=== PATIENT | female | born 1960 | race Caucasian/White ===

== ENCOUNTER 2018-12-15 13:40 | Emergency (ER) | payer SELFPAY ==
--- NOTE | 2018-12-15 13:58 | ER Document Report ---
ED Medical Screen (RME) - General Chief Complaint: Chest Pain > 30 Stated Complaint: CHEST PAIN/DIFFICULTY BREATHING Time Seen by Provider: 12/15/18 13:54 Mode of Arrival: Wheelchair Information source: Patient Notes: 58-year-old female presents to ED for complaint of abdominal pain with diarrhea since Wednesday and then with chest pain at lunchtime with shortness of breath and still has the diarrhea. Patient is alert and oriented respirations regular and unlabored. She is doubled over at the abdomen. She states all of the pain is right behind her heart does not go to the shoulder arm neck or jaw. She states she is very nauseated and has only vomited one time just before bringing her into the hospital. I have greeted and performed a rapid initial assessment of this patient. A comprehensive ED assessment and evaluation of the patient, analysis of test results and completion of medical decision making process will be conducted by an additional ED providers. - Related Data Allergies/Adverse Reactions: No Known Allergies Allergy (Verified 12/15/18 13:51) Physical Exam - Vital signs Vitals: Temp Pulse Resp BP Pulse Ox 97.4 F 112 H 36 H 138/92 H 98 12/15/18 13:51 12/15/18 13:51 12/15/18 13:51 12/15/18 13:51 12/15/18 13:51 Course - Vital Signs Vital signs: Temp Pulse Resp BP Pulse Ox 97.4 F 112 H 36 H 138/92 H 98 12/15/18 13:51 12/15/18 13:51 12/15/18 13:51 12/15/18 13:51 12/15/18 13:51
[2018-12-15] MEDS ORDERED: METOCLOPRAMIDE HCL ORAL SOLN 10 MG/10 ML UDCUP PO ONE (13:59)
[2018-12-15] MEDS ORDERED: LIDOCAINE 2% JELLY 30 ML TUBE TOP ONE (13:59)
[2018-12-15] MEDS ORDERED: ASPIRIN 81 MG TABLET, CHEWABLE PO ONE (13:59)
[2018-12-15] MEDS ORDERED: MAG HYDROX/AL HYDROX/SIMETH SUSP 30 ML UDCUP PO ONE (13:59)
[2018-12-15] MEDS ORDERED: ALBUTEROL SULFATE 0.083% NEB 2.5 MG/3 ML AMPUL NEB ONE (14:03)
[2018-12-15] MEDS ORDERED: DEXAMETHASONE SOD PHOS INJ 10 MG/1 ML VIAL IM ONE (14:04)
[2018-12-15] MEDS ORDERED: LIDOCAINE 2% VISCOUS SOLN 20 ML UDCUP PO ONE (14:11)
[2018-12-15 14:23] LABS: ABSOLUTE BASOPHILS # (AUTO) 0.1 10^3/uL (0.0-0.2); ABSOLUTE EOSINOPHILS # (AUTO) 0.8 10^3/uL (0.0-0.6); ABSOLUTE LYMPHOCYTES (AUTO) 2.4 10^3/uL (0.5-4.7); ABSOLUTE MONOCYTES (AUTO) 0.5 10^3/uL (0.1-1.4); ABSOLUTE NEUT (AUTO) 5.5 10^3/uL (1.7-8.2); BASOPHILS % (AUTO) 0.8 % (0-2); EOSINOPHILS % (AUTO) 8.5 % (0-6); HEMATOCRIT 38.2 % (36.0-47.0); HEMOGLOBIN 13.2 g/dL (12.0-15.5); LYMPHOCYTES % (AUTO) 25.8 % (13-45); MEAN CORPUSCULAR HEMOGLOBIN 31.1 pg (27.0-33.4); MEAN CORPUSCULAR HGB CONC 34.5 g/dL (32.0-36.0); MEAN CORPUSCULAR VOLUME 90 fl (80-97); MONOCYTES % (AUTO) 5.8 % (3-13); PLATELET COUNT 311 10^3/uL (150-450); RED BLOOD COUNT 4.24 10^6/uL (3.72-5.28); RED CELL DISTRIBUTION WIDTH 12.6 % (11.5-14.0); SEGMENTED NEUTROPHILS % (AUTO) 59.1 % (42-78); TOTAL CELLS COUNTED % (AUTO) 100 %; WHITE BLOOD COUNT 9.3 10^3/uL (4.0-10.5)
--- NOTE | 2018-12-15 14:26 | RADIOLOGY REPORT (SQ) ---
EXAM DESCRIPTION: CHEST 2 VIEWS COMPLETED DATE/TIME: 12/15/2018 2:16 pm REASON FOR STUDY: chest pain COMPARISON: None. EXAM PARAMETERS: NUMBER OF VIEWS: two views TECHNIQUE: Digital Frontal and Lateral radiographic views of the chest acquired. RADIATION DOSE: NA LIMITATIONS: none FINDINGS: LUNGS AND PLEURA: Hyperexpansion. Scarring in the apices. No consolidation or effusions. No pneumothorax. MEDIASTINUM AND HILAR STRUCTURES: No masses or contour abnormalities. HEART AND VASCULAR STRUCTURES: Heart normal size. No evidence for failure. BONES: No acute findings. HARDWARE: None in the chest. OTHER: No other significant finding. IMPRESSION: Hyperexpansion. No acute findings in the chest. TECHNICAL DOCUMENTATION: JOB ID: [id number] [employer]- All Rights Reserved Reading location - IP/workstation name: [email or web address]
[2018-12-15 14:52] LABS: INTERNATIONAL RATION (INR) 0.98
[2018-12-15 14:58] LABS: CREATINE KINASE MB 0.31 ng/mL (<4.55)
[2018-12-15 15:01] LABS: TROPONIN I < 0.012 ng/mL
[2018-12-15 17:13] VITALS: BP 118/78
[2018-12-15 18:34] LABS: ALBUMIN 4.3 g/dL (3.5-5.0); ALKALINE PHOSPHATASE 66 U/L (38-126); ANION GAP 15 (5-19); ASPARTATE AMINO TRANSFERASE 18 U/L (14-36); BILIRUBIN,DIRECT 0.2 mg/dL (0.0-0.4); BILIRUBIN,TOTAL 0.5 mg/dL (0.2-1.3); BLOOD UREA NITROGEN 10 mg/dL (7-20); CALCIUM 9.7 mg/dL (8.4-10.2); CARBON DIOXIDE 23 mmol/L (22-30); CHLORIDE 104 mmol/L (98-107); GLUCOSE 191 mg/dL (75-110); POTASSIUM 3.5 mmol/L (3.6-5.0); TOTAL PROTEIN 7.3 g/dL (6.3-8.2)
--- NOTE | 2018-12-16 06:29 | EKG REPORT ---
SEVERITY:- ABNORMAL ECG - SINUS TACHYCARDIA REPOL ABNRM SUGGESTS ISCHEMIA, DIFFUSE LEADS : Confirmed by: Jeff Sen MD 16-Dec-2018 06:29:35
== END 2018-12-15 18:01 | disposition left against medical advice (07) ==
LOC: ER 13:40
DX: Z53.21 Procedure and treatment not carried out due to patient leaving prior to being seen by health care provider (principal); R07.9 Chest pain, unspecified; R19.7 Diarrhea, unspecified; R06.02 Shortness of breath
CPT/HCPCS: 36415; 82553; 82550; 83690; 85025; 85610; 85730; 80053; 84484; 71046; J3490; J1100; 93005; 93010

== ENCOUNTER 2019-02-12 12:48 | Inpatient (IN) | payer SELFPAY ==
[2019-02-12] MEDS ORDERED: RINGERS SOLUTION,LACTATED 1,000 ML IV ONE (13:19)
[2019-02-12] MEDS ORDERED: MAG HYDROX/AL HYDROX/SIMETH SUSP 30 ML UDCUP PO ONE (13:19)
[2019-02-12] MEDS ORDERED: LIDOCAINE 2% VISCOUS SOLN 20 ML UDCUP PO ONE (13:19)
[2019-02-12] MEDS ORDERED: METOCLOPRAMIDE HCL ORAL SOLN 10 MG/10 ML UDCUP PO ONE (13:19)
--- NOTE | 2019-02-12 13:23 | ER Document Report ---
ED General - General Stated Complaint: ABDOMINAL PAIN Time Seen by Provider: 02/12/19 13:11 TRAVEL OUTSIDE OF THE [place] IN LAST 30 DAYS: No - HPI Context: Patient presents with diffuse abdominal pain states pressure sensation with nausea and absence of any vomiting or diarrhea. She states she normally takes omeprazole and ranitidine has not taken these medications in over a month. Her pain started yesterday afternoon. She has not been around any sick contacts. The pain is diffuse in nature. No dysuria. No black or red stool. She had appendectomy many years ago still has her gallbladder. - Related Data Allergies/Adverse Reactions: No Known Allergies Allergy (Verified 02/12/19 20:12) Past Medical History - Social History Smoking Status: Unknown if Ever Smoked Family History: Reviewed & Not Pertinent - Past Medical History Cardiac Medical History: Reports: Hx Heart Attack - 2002 Pulmonary Medical History: Reports: Hx Asthma - Reports that "I don't take anything for it" Past Surgical History: Reports: Hx Nose Surgery, Hx Orthopedic Surgery - facial reconstruction, Hx Tubal Ligation Review of Systems - Review of Systems Constitutional: No symptoms reported EENT: No symptoms reported Cardiovascular: No symptoms reported Respiratory: No symptoms reported Gastrointestinal: See HPI Genitourinary: No symptoms reported Female Genitourinary: No symptoms reported Musculoskeletal: No symptoms reported Skin: No symptoms reported Hematologic/Lymphatic: No symptoms reported Neurological/Psychological: No symptoms reported Physical Exam - Vital signs Vitals: Temp Pulse Resp BP Pulse Ox 98.7 F 110 H 23 H 135/83 H 99 02/12/19 12:48 02/12/19 12:48 02/12/19 12:48 02/12/19 12:48 02/12/19 12:48 - General General appearance: Appears well, Alert - HEENT Head: Normocephalic, Atraumatic Eyes: Normal Conjunctiva: Normal Extraocular movements intact: Yes Pupils: PERRL - Respiratory Respiratory status: No respiratory distress Chest status: Nontender Breath sounds: Normal Chest palpation: Normal - Cardiovascular Rhythm: Tachycardia Heart sounds: Normal auscultation Murmur: No - Abdominal Inspection: Normal Distension: No distension Bowel sounds: Normal Tenderness: Tender, Other - Diffuse - Back Back: Normal, Nontender - Neurological Neuro grossly intact: Yes Cognition: Normal Orientation: AAOx4 - Psychological Associated symptoms: Normal affect Course - Re-evaluation Re-evalutation: 02/12/19 17:[address] Toledo for acute cholecystitis he will be bringing her to surgery. Antibiotics provided. - Vital Signs Vital signs: Temp Pulse Resp BP Pulse Ox 97.7 F 83 16 127/62 H 98 02/13/19 12:00 02/13/19 12:00 02/13/19 12:00 02/13/19 12:00 02/13/19 12:00 - Laboratory Result Diagrams: 02/13/19 05:17 02/13/19 08:04 Laboratory results interpreted by me: 02/12/19 02/12/19 02/12/19 12:55 12:55 15:50 WBC 14.1 H Lymph % (Auto) 12.7 L Absolute Neuts (auto) 11.1 H Seg Neutrophils % 79.0 H Glucose 112 H AST 41 H Urine Blood MODERATE H Urine Urobilinogen 2.0 H Discharge - Discharge Clinical Impression: Acute cholecystitis Condition: Good Disposition: ADMITTED INPATIENT Admitting Provider: lolis Unit Admitted: Surgical Floor
[2019-02-12 13:35] LABS: ABSOLUTE EOSINOPHILS # (AUTO) 0.2 10^3/uL (0.0-0.6); ABSOLUTE LYMPHOCYTES (AUTO) 1.8 10^3/uL (0.5-4.7); ABSOLUTE MONOCYTES (AUTO) 0.9 10^3/uL (0.1-1.4); ABSOLUTE NEUT (AUTO) 11.1 10^3/uL (1.7-8.2); BASOPHILS % (AUTO) 0.3 % (0-2); EOSINOPHILS % (AUTO) 1.3 % (0-6); HEMATOCRIT 36.1 % (36.0-47.0); HEMOGLOBIN 12.3 g/dL (12.0-15.5); LYMPHOCYTES % (AUTO) 12.7 % (13-45); MEAN CORPUSCULAR HEMOGLOBIN 30.2 pg (27.0-33.4); MEAN CORPUSCULAR HGB CONC 34.1 g/dL (32.0-36.0); MEAN CORPUSCULAR VOLUME 89 fl (80-97); MONOCYTES % (AUTO) 6.7 % (3-13); PLATELET COUNT 306 10^3/uL (150-450); RED BLOOD COUNT 4.08 10^6/uL (3.72-5.28); RED CELL DISTRIBUTION WIDTH 12.3 % (11.5-14.0); TOTAL CELLS COUNTED % (AUTO) 100 %; WHITE BLOOD COUNT 14.1 10^3/uL (4.0-10.5)
[2019-02-12 13:41] LABS: ALKALINE PHOSPHATASE 86 U/L (38-126); ANION GAP 13 (5-19); ASPARTATE AMINO TRANSFERASE 41 U/L (14-36); BILIRUBIN,DIRECT 0.3 mg/dL (0.0-0.4); BILIRUBIN,TOTAL 0.8 mg/dL (0.2-1.3); BLOOD UREA NITROGEN 9 mg/dL (7-20); CALCIUM 9.5 mg/dL (8.4-10.2); CARBON DIOXIDE 27 mmol/L (22-30); CHLORIDE 100 mmol/L (98-107); GLUCOSE 112 mg/dL (75-110); POTASSIUM 3.8 mmol/L (3.6-5.0); TOTAL PROTEIN 6.8 g/dL (6.3-8.2)
--- NOTE | 2019-02-12 14:18 | RADIOLOGY REPORT (SQ) ---
EXAM DESCRIPTION: CHEST SINGLE VIEW COMPLETED DATE/TIME: 02/12/2019 1:56 pm REASON FOR STUDY: upper abd pain COMPARISON: 12/15/2018. NUMBER OF VIEWS: One view. TECHNIQUE: Single frontal radiographic view of the chest acquired. LIMITATIONS: None. FINDINGS: LUNGS AND PLEURA: Hyperinflated lungs with linear areas of mid lung zone subsegmental atel ectasis bilaterally. Lungs otherwise clear. MEDIASTINUM AND HILAR STRUCTURES: No masses. Contour normal. HEART AND VASCULAR STRUCTURES: Heart normal in size. Normal vasculature. BONES: No acute findings. HARDWARE: None in the chest. OTHER: No other significant finding. IMPRESSION: Hyperinflated lungs likely reflecting COPD. Minimal areas of subsegmental atelectasis b ut no acute infiltrate or other acute abnormality. TECHNICAL DOCUMENTATION: JOB ID: [id number] [employer]- All Rights Reserved Reading location - IP/workstation name: [email or web address]
--- NOTE | 2019-02-12 14:49 | RADIOLOGY REPORT (SQ) ---
EXAM DESCRIPTION: CT ABD/PELVIS WITH IV ONLY COMPLETED DATE/TIME: 02/12/2019 2:31 pm REASON FOR STUDY: diffuse abd pain COMPARISON: None. TECHNIQUE: CT scan of the abdomen and pelvis performed using helical scanning technique with dynamic intravenous contrast injection. No oral contrast. Images reviewed with lung, soft tissue, and bone w indows. Reconstructed coronal and sagittal MPR images reviewed. Delayed images for evaluation of the urinary system also acquired. All images stored on PACS. All CT scanners at this facility use dose modulation, iterative reconstruction, and/or weight based d osing when appropriate to reduce radiation dose to as low as reasonably achievable (ALARA). [facility]: Dose Right [facility]: CareDose [facility]: Dose Right [facility]: Teradose 4D [facility]: [employer] display technologies CONTRAST TYPE AND DOSE: contrast/concentration: Isovue 350.00 mg/ml; Total Contrast Delivered: 65.0 ml; Total Saline Delivered: 65.0 ml RENAL FUNCTION: GFR > 60. RADIATION DOSE: CT Rad equipment meets quality standard of care and radiation dose reduction techniq ues were employed. CTDIvol: 4.8 - 4.8 mGy. DLP: 474 mGy-cm.. LIMITATIONS: None. FINDINGS: LOWER CHEST: No significant findings. LIVER: Normal size. No enhancing masses. Mildly dilated bowel ducts. SPLEEN: Normal size. No focal lesions. PANCREAS: No masses identified. No significant calcifications. No adjacent inflammation or peripancre atic fluid collections. Pancreatic duct not dilated. GALLBLADDER: No calcified stones. Moderate adjacent inflammatory changes to suggest cholecystitis. ADRENAL GLANDS: No significant masses. RIGHT KIDNEY AND URETER: No cysts identified. No solid masses identified. No calcified stones. No hyd ronephrosis or hydroureter. LEFT KIDNEY AND URETER: No cysts identified. No solid masses identified. No calcified stones. No hydr onephrosis or hydroureter. AORTA AND VESSELS: No aneurysm. No dissection. Renal arteries, SMA, celiac without significant stenos is. RETROPERITONEUM: No bulky retroperitoneal adenopathy. BOWEL AND PERITONEAL CAVITY: No obstruction or inflammatory changes. No free fluid. APPENDIX: Not visualized. PELVIS: No mass. No free fluid. Unremarkable bladder. ABDOMINAL WALL: No masses. No hernias. BONES: No acute findings. OTHER: No other significant finding. IMPRESSION: Moderate inflammatory changes adjacent to the gallbladder with wall thickening suggestin g acute cholecystitis. Mild biliary dilatation. No calcified stones identified. TECHNICAL DOCUMENTATION: JOB ID: [id number] [place]-72 Quality ID # [id number]: Final reports with documentation of one or more dose reduction techniques (e.g., Au tomated exposure control, adjustment of the mA and/or kV according to patient size, use of iterative reconstruction technique) 2010 [employer]- All Rights Reserved Reading location - IP/workstation name: [email or web address]
[2019-02-12] MEDS ORDERED: ACETAMINOPHEN 325 MG TABLET PO ONE (15:55)
[2019-02-12] MEDS ORDERED: METRONIDAZOLE 500 MG/NS RTU 500 MG/100 ML RTUPB IV ONE (15:57)
[2019-02-12] MEDS ORDERED: LEVOFLOXACIN 750 MG/D5W RTU 750 MG/150 ML RTUPB IV ONE (15:57)
--- NOTE | 2019-02-12 15:59 | RADIOLOGY REPORT (SQ) ---
EXAM DESCRIPTION: U/S ABDOMEN LIMITED W/O DOP COMPLETED DATE/TIME: 02/12/2019 3:42 pm REASON FOR STUDY: abnormal pain COMPARISON: None. TECHNIQUE: Dynamic and static grayscale images acquired of the abdomen and recorded on PACS. Additio nal selected color Doppler and spectral images recorded. LIMITATIONS: None. FINDINGS: PANCREAS: No masses. Visualized pancreatic duct normal caliber. LIVER: No masses. Echotexture normal. LIVER VASCULATURE: Normal directional flow of the main portal vein and hepatic veins. GALLBLADDER: Multiple gallstones -moderate sludge with increased wall thickness and small amount of p ericholecystic fluid. ULTRASOUND-DETECTED HAWTHORNE'S SIGN: Negative. INTRAHEPATIC DUCTS AND COMMON DUCT: CBD and intrahepatic ducts normal caliber. No filling defects. INFERIOR VENA CAVA: Normal flow. AORTA: No aneurysm identified. RIGHT KIDNEY: Normal size. Normal echogenicity. No solid or suspicious masses. No hydronephros is. No calcifications. PERITONEAL AND RIGHT PLEURAL SPACE: No ascites or effusions. OTHER: No other significant findings. IMPRESSION: Multiple gallstones -moderate sludge with increased gallbladder wall thickness and small amount of pericholecystic fluid. TECHNICAL DOCUMENTATION: JOB ID: [id number] [place]-72 2010 [employer]- All Rights Reserved Reading location - IP/workstation name: [email or web address]
[2019-02-12 16:21] LABS: APPEARANCE,URINE CLEAR; BILIRUBIN,URINE NEGATIVE (NEGATIVE); COLOR,URINE YELLOW; GLUCOSE, URINE NEGATIVE (NEGATIVE); KETONES,URINE NEGATIVE (NEGATIVE); LEUKOCYTE ESTERASE,URINE NEGATIVE (NEGATIVE); NITRITE,URINE NEGATIVE (NEGATIVE); PROTEIN,URINE NEGATIVE (NEGATIVE); URINE SPECIFIC GRAVITY 1.029
[2019-02-12 16:40] LABS: URINE AMPHETAMINES SCREEN NEGATIVE; URINE BARBITURATES SCREEN NEGATIVE; URINE BENZODIAZEPINES SCREEN NEGATIVE; URINE COCAINE SCREEN NEGATIVE; URINE MARIJUANA (THC) SCREEN NEGATIVE; URINE METHADONE SCREEN NEGATIVE; URINE PHENCYCLIDINE SCREEN NEGATIVE
--- NOTE | 2019-02-12 16:58 | PDOC H&P ---
History of Present Illness Admission Date/PCP: February 12, 2019 Patient complains of: Right upper quadrant pain History of Present Illness: SANDRA KRISHNAN is a 58 year old female, with a 24-hour history of sudden onset of right upper quadrant pain, epigastric pain, intense nausea, no vomiting, no fever or chills. When she presented to the emergency room the patient was afebrile. However, after her presentation in the emergency room she biked a temperature 101.2 and blood cultures were obtained. Her blood work shows leukocytosis of 18.9, normal lactic acid, normal complete metabolic profile. An ultrasound of the gallbladder significant for acute cholecystitis, gallbladder wall thickening with cholelithiasis and sludge, normal biliary ducts. CT scan abdomen pelvis reveals a wall thickened gallbladder with stones as per acute calculus cholecystitis. Patient has received narcotics upon her arrival in the emergency room and she is obtunded during the interview, but arousable and able to respond appropriately. Past Medical History Cardiac Medical History: Reports: Myocardial Infarction - 2002 Pulmonary Medical History: Reports: Asthma - Reports that "I don't take anything for it" Past Surgical History Past Surgical History: Reports: Orthopedic Surgery - facial reconstruction, Tubal Ligation Social History Smoking Status: Unknown if Ever Smoked Family History Family History: Hypertension, Malignancy Parental Family History Reviewed: Yes - Hypertension and cancer Children Family History Reviewed: No Sibling(s) Family History Reviewed.: No Medication/Allergy Allergies/Adverse Reactions: No Known Allergies Allergy (Verified 12/15/18 13:51) Physical Exam Vital Signs: Temp Pulse Resp BP Pulse Ox 101.2 F H 110 H 25 H 135/83 H 99 02/12/19 15:08 02/12/19 12:48 02/12/19 15:00 02/12/19 12:48 02/12/19 12:48 Intake & Output 02/11/19 02/12/19 02/13/19 06:59 06:59 06:59 Intake Total 1000 Balance 1000 Weight 50.802 kg General appearance: PRESENT: no acute distress, disheveled, thin Head exam: PRESENT: atraumatic Eye exam: PRESENT: EOMI Ear exam: PRESENT: normal external ear exam Mouth exam: PRESENT: dry mucosa, tongue midline Teeth exam: PRESENT: poor dentation Neck exam: PRESENT: full ROM Respiratory exam: PRESENT: clear to auscultation carson Cardiovascular exam: PRESENT: tachycardia - Regular rhythm GI/Abdominal exam: PRESENT: hypoactive bowel sounds, Hardin's sign - Ulcerative, soft, tenderness - Epigastrium and right upper quadrant Rectal exam: PRESENT: deferred Extremities exam: PRESENT: full ROM Musculoskeletal exam: PRESENT: full ROM Neurological exam: PRESENT: other - Patient sleepy but arousable and responds appropriately to questions Skin exam: PRESENT: warm Results Laboratory Results: 02/12/19 12:55 02/12/19 12:55 02/12/19 02/12/19 02/12/19 12:55 12:55 15:50 WBC 14.1 H RBC 4.08 Hgb 12.3 Hct 36.1 MCV 89 MCH 30.2 MCHC 34.1 RDW 12.3 Plt Count 306 Seg Neutrophils % 79.0 H Sodium 139.5 Potassium 3.8 Chloride 100 Carbon Dioxide 27 Anion Gap 13 BUN 9 Creatinine 0.79 Est GFR ( Amer) > 60 Glucose 112 H Lactic Acid 1.9 Calcium 9.5 Magnesium 1.9 Total Bilirubin 0.8 AST 41 H Alkaline Phosphatase 86 Total Protein 6.8 Albumin 4.0 Lipase 96.3 Urine Color Urine Appearance Urine pH Ur Specific [place] Urine Protein Urine Glucose (UA) Urine Ketones Urine Blood Urine Nitrite Ur Leukocyte Esterase Urine WBC (Auto) Urine RBC (Auto) 02/12/19 15:50 WBC RBC Hgb Hct MCV MCH MCHC RDW Plt Count Seg Neutrophils % Sodium Potassium Chloride Carbon Dioxide Anion Gap BUN Creatinine Est GFR ( Amer) Glucose Lactic Acid Calcium Magnesium Total Bilirubin AST Alkaline Phosphatase Total Protein Albumin Lipase Urine Color YELLOW Urine Appearance CLEAR Urine pH 9.0 Ur Specific [place] 1.029 Urine Protein NEGATIVE Urine Glucose (UA) NEGATIVE Urine Ketones NEGATIVE Urine Blood MODERATE H Urine Nitrite NEGATIVE Ur Leukocyte Esterase NEGATIVE Urine WBC (Auto) 2 Urine RBC (Auto) 43 02/12/19 12:55 Troponin I < 0.012 Impressions: Chest X-Ray 02/12/19 13:19 IMPRESSION: Hyperinflated lungs likely reflecting COPD. Minimal areas of subsegmental atelectasis but no acute infiltrate or other acute abnormality. Abdomen/Pelvis CT 02/12/19 13:20 IMPRESSION: Moderate inflammatory changes adjacent to the gallbladder with wall thickening suggesting acute cholecystitis. Mild biliary dilatation. No calcified stones identified. Abdomen Ultrasound 02/12/19 14:57 IMPRESSION: Multiple gallstones -moderate sludge with increased gallbladder wall thickness and small amount of pericholecystic fluid. Assessment & Plan - Diagnosis (1) Acute calculous cholecystitis Is this a current diagnosis for this admission?: Yes (2) Hypertension Is this a current diagnosis for this admission?: Yes - Plan Summary Plan Summary: Assessment: Right upper quadrant pain with intense nausea Fever one 1.2 with tachycardia 102 Ultrasound gallbladder shows cholelithiasis with thickened gallbladder wall as per acute calculus cholecystitis Leukocytosis 14,[address] scan abdomen pelvis shows cholelithiasis/sludge, thickened gallbladder wall with acsa-cystic fluid as per acute calculus cholecystitis No other CT scan abdomen pelvis findings identified Chest x-ray shows possible atelectasis, no jesus pulmonary filtrates History of hypertension Plan: Admit patient Ice chips then n.p.o. after midnight IV fluids IV antibiotics Levaquin 750 mg IV every 24 Flagyl 40 mg IV q. 8 blood culture x2 Urine culture Plan possible cholecystectomy, possible open, possible cholangiogram tomorrow
[2019-02-12] MEDS ORDERED: ACETAMINOPHEN 325 MG TABLET PO PRN (17:10)
[2019-02-12] MEDS ORDERED: LEVOFLOXACIN 500 MG/D5W RTU 500 MG/100 ML RTUPB IV SCH (18:00)
[2019-02-12] MEDS: PANTOPRAZOLE SODIUM 40 MG VIAL IV SCH ×2 (18:50→21:22)
[2019-02-12] MEDS: METOCLOPRAMIDE HCL INJ/PF 10 MG/2 ML SDV IV SCH (19:16)
[2019-02-12] MEDS: NORMAL SALINE 1000 ML 1,000 ML IV PRN (19:16)
--- NOTE | 2019-02-12 19:18 | PDOC CONSULTATION ---
Consultation Consult Date: 02/12/19 Attending physician:: KAYCE RUANO Provider Consulted: ABDIFATAH PARKER Consult reason:: Medical management History of Present Illness Admission Date/PCP: 02/12/19 17:11 Patient complains of: Abdominal pain History of Present Illness: SANDRA KRISHNAN is a 58 year old female who reports that her abdominal pain started last night. It is more across the epigastrium. She is in discomfort so the interaction during the encounter is somewhat limited. She shook her head no when I asked about the fever and chills. Temperature on admission to the emergency department was 102 F. She was tachycardic. She was borderline hypertensive. Her breathing was adversely affected by the pain. She was admitted by Dr. Ruano for cholecystectomy. She will receive IV antibiotics and fluids today with proposed surgery tomorrow. We have been asked to see the patient to manage concurrent medical issues. Past Medical History Cardiac Medical History: Reports: Myocardial Infarction - 2002 Pulmonary Medical History: Reports: Asthma - Reports that "I don't take anything for it" Past Surgical History Past Surgical History: Reports: Orthopedic Surgery - facial reconstruction, Tubal Ligation Social History Information Source: Patient Lives with: Alone Smoking Status: Never Smoker Electronic Cigarette use?: No Frequency of Alcohol Use: None Hx Recreational Drug Use: No Hx Prescription Drug Abuse: No - Advance Directive Resuscitation Status: Full Code Family History Family History: Hypertension, Malignancy Parental Family History Reviewed: Yes Children Family History Reviewed: Yes Sibling(s) Family History Reviewed.: Yes Medication/Allergy Allergies/Adverse Reactions: No Known Allergies Allergy (Verified 02/12/19 20:12) Review of Systems All systems: reviewed and no additional remarkable complaints except as stated Constitutional: PRESENT: fever(s) Gastrointestinal: PRESENT: abdominal pain, nausea Psychiatric: PRESENT: other - Clearly in pain Physical Exam Vital Signs: Temp Pulse Resp BP Pulse Ox 102 F H 125 H 21 H 130/85 H 95 02/12/19 18:12 02/12/19 18:12 02/12/19 18:12 02/12/19 17:00 02/12/19 18:12 Intake & Output 02/11/19 02/12/19 02/13/19 06:59 06:59 06:59 Intake Total 1100 Balance 1100 Weight 50.802 kg General appearance: PRESENT: cooperative - As much as possible in light of her pain, severe distress, well-developed, well-nourished Head exam: PRESENT: atraumatic Eye exam: PRESENT: conjunctiva pink. ABSENT: scleral icterus Ear exam: PRESENT: normal external ear exam. ABSENT: bleeding, drainage Mouth exam: PRESENT: dry mucosa, tongue midline Respiratory exam: PRESENT: symmetrical, tachypnea, other - Patient was taking short inspirations with open mouth. Appears like guppy breathing. The patient states that it hurts to take a deep breath.. ABSENT: rales, rhonchi, wheezes Cardiovascular exam: PRESENT: RRR, +S1, +S2, tachycardia GI/Abdominal exam: PRESENT: diminished bowel sounds, soft, tenderness - Very tender especially upper abdomen Rectal exam: PRESENT: deferred Extremities exam: ABSENT: pedal edema Musculoskeletal exam: PRESENT: full ROM, normal inspection. ABSENT: deformity Neurological exam: PRESENT: altered - Limited communication due to her tachypnea and breathing pattern, awake, oriented to person, oriented to place, oriented to situation, CN II-XII grossly intact Psychiatric exam: PRESENT: anxious, appropriate affect - Affect reflects her current clinical condition. ABSENT: agitated Skin exam: PRESENT: dry, warm. ABSENT: rash Results Laboratory Results: 02/12/19 12:55 02/12/19 12:55 02/12/19 02/12/19 02/12/19 12:55 12:55 15:50 WBC 14.1 H RBC 4.08 Hgb 12.3 Hct 36.1 MCV 89 MCH 30.2 MCHC 34.1 RDW 12.3 Plt Count 306 Seg Neutrophils % 79.0 H Sodium 139.5 Potassium 3.8 Chloride 100 Carbon Dioxide 27 Anion Gap 13 BUN 9 Creatinine 0.79 Est GFR ( Amer) > 60 Glucose 112 H Lactic Acid 1.9 Calcium 9.5 Magnesium 1.9 Total Bilirubin 0.8 AST 41 H Alkaline Phosphatase 86 Total Protein 6.8 Albumin 4.0 Lipase 96.3 Urine Color Urine Appearance Urine pH Ur Specific [place] Urine Protein Urine Glucose (UA) Urine Ketones Urine Blood Urine Nitrite Ur Leukocyte Esterase Urine WBC (Auto) Urine RBC (Auto) 02/12/19 15:50 WBC RBC Hgb Hct MCV MCH MCHC RDW Plt Count Seg Neutrophils % Sodium Potassium Chloride Carbon Dioxide Anion Gap BUN Creatinine Est GFR ( Amer) Glucose Lactic Acid Calcium Magnesium Total Bilirubin AST Alkaline Phosphatase Total Protein Albumin Lipase Urine Color YELLOW Urine Appearance CLEAR Urine pH 9.0 Ur Specific [place] 1.029 Urine Protein NEGATIVE Urine Glucose (UA) NEGATIVE Urine Ketones NEGATIVE Urine Blood MODERATE H Urine Nitrite NEGATIVE Ur Leukocyte Esterase NEGATIVE Urine WBC (Auto) 2 Urine RBC (Auto) 43 02/12/19 12:55 Troponin I < 0.012 Impressions: Chest X-Ray 02/12/19 13:19 IMPRESSION: Hyperinflated lungs likely reflecting COPD. Minimal areas of subsegmental atelectasis but no acute infiltrate or other acute abnormality. Abdomen/Pelvis CT 02/12/19 13:20 IMPRESSION: Moderate inflammatory changes adjacent to the gallbladder with wall thickening suggesting acute cholecystitis. Mild biliary dilatation. No calcified stones identified. Abdomen Ultrasound 02/12/19 14:57 IMPRESSION: Multiple gallstones -moderate sludge with increased gallbladder wall thickness and small amount of pericholecystic fluid. Assessment and Plan - Diagnosis (1) Acute calculous cholecystitis Is this a current diagnosis for this admission?: Yes Plan: 02/12/2019-gallstones identified by ultrasound. Wall thickening and inflammatory changes. The patient was started on antibiotics and cholecystectomy is scheduled for tomorrow (2) Abdominal pain Qualifiers: Abdominal location: epigastric Qualified Code(s): R10.13 - Epigastric pain Is this a current diagnosis for this admission?: Yes Plan: 02/12/2019-pain is mostly epigastric. Because of this it adversely affects her breathing pattern. She has shallow frequent respirations. She is maintaining oxygenation. Pain management per general surgery. (3) Tachycardia Is this a current diagnosis for this admission?: Yes Plan: 02/12/2019-secondary to her acute illness. Possibly volume depleted. The patient will save IV fluids and I will start low-dose beta-piotr with the history of coronary disease in the records. (4) Hypertension Qualifiers: Hypertension type: essential hypertension Qualified Code(s): I10 - E ssential (primary) hypertension Is this a current diagnosis for this admission?: Yes Plan: 02/12/2019-the patient is on no medications except proton pump inhibitor and H2 piotr. This is very odd for patient with a history of myocardial infarction. I will place the patient on beta-piotr and statin therapy. No aspirin today as she is intended for cholecystectomy tomorrow. As pain decreases it will reflecting a decrease in blood pressure. (5) Coronary artery disease Qualifiers: Coronary Disease-Associated Artery/Lesion type: unspecified vessel or lesion type [place] vs. transplanted heart: [place] heart Associated angina: angina presence unspecified Qualified Code(s): I25.10 - Atherosclerotic heart disease of [place] coronary artery without angina pectoris Is this a current diagnosis for this admission?: Yes Plan: 02/12/2019-difficult to obtain full history as the patient is in acute pain and communication is limited. I am going to start a beta-piotr and statin therapy. No aspirin therapy until postoperatively. When the patient is in less pain and better able to interact I will obtain further information. - Plan Summary Summary: 02/12/2019-for presumed history of coronary artery disease with myocardial infarction I will start statin therapy and a beta-piotr. We will attempt to control blood pressure and pulse. IV fluids will help with pulse and as pain decreases vital signs will improve. The low-dose beta-piotr will be protective and help the pulse and blood pressure - Time Time Spent with patient: 35 or more minutes Medications reviewed and adjusted accordingly: Yes - Inpatient Certification Based on my medical assessment, after consideration of the patient's comorbidities, presenting symptoms, or acuity I expect that the services needed warrant INPATIENT care.: Yes I certify that my determination is in accordance with my understanding of Medicare's requirements for reasonable and necessary INPATIENT services [42 CFR 412.3e].: Yes Medical Necessity: Need Close Monitoring Due to Risk of Patient Decompensation, Need For IV Fluids, Need for IV Antibiotics, Need for Surgery
--- NOTE | 2019-02-12 19:26 | EKG REPORT ---
SEVERITY:- OTHERWISE NORMAL ECG - SINUS TACHYCARDIA : Confirmed by: Jennifer Joy MD 12-Feb-2019 19:25:39
[2019-02-12] MEDS ORDERED: FENTANYL CITRATE INJ/PF 100 MCG/2 ML AMPUL ONE (19:39)
[2019-02-12] MEDS ORDERED: INFLUENZA QUAD (6MOS+) 2019-20 VAC 0.5 ML SYR IM ONE (19:44)
[2019-02-12] MEDS ORDERED: FENTANYL CITRATE INJ/PF 250 MCG/5 ML AMPULE IV ONE (19:45)
[2019-02-12] MEDS: METOPROLOL TARTRATE 25 MG TABLET PO SCH (21:14)
[2019-02-12] MEDS: ATORVASTATIN CALCIUM 10 MG TABLET PO SCH (21:23)
[2019-02-13] MEDS: METOCLOPRAMIDE HCL INJ/PF 10 MG/2 ML SDV IV SCH ×4 (00:40→19:39)
[2019-02-13] MEDS ORDERED: METRONIDAZOLE 500 MG/NS RTU 500 MG in CONTAINER,EMPTY 1 EACH IV SCH ×2 (02:00→10:00)
[2019-02-13 02:44] LABS: APPEARANCE,URINE CLEAR; BILIRUBIN,URINE NEGATIVE (NEGATIVE); COLOR,URINE AMBER; GLUCOSE, URINE NEGATIVE (NEGATIVE); KETONES,URINE NEGATIVE (NEGATIVE); LEUKOCYTE ESTERASE,URINE NEGATIVE (NEGATIVE); NITRITE,URINE NEGATIVE (NEGATIVE); PROTEIN,URINE 30 mg/dL (NEGATIVE); URINE SPECIFIC GRAVITY 1.025
[2019-02-13] MEDS ORDERED: METRONIDAZOLE 500 MG/NS RTU 500 MG in CONTAINER,EMPTY 1 EACH IV ONE (02:45)
[2019-02-13] MEDS ORDERED: METRONIDAZOLE 500 MG/NS RTU 500 MG/100 ML RTUPB IV ONE (03:00)
[2019-02-13] MEDS: NORMAL SALINE 1000 ML 1,000 ML IV PRN ×2 (06:08→21:34)
[2019-02-13] MEDS ORDERED: PIPERACILLIN/TAZOBACTAM 3.375 GM VIAL IV SCH (06:15)
[2019-02-13 06:24] LABS: ALBUMIN 3.3 g/dL (3.5-5.0); ALKALINE PHOSPHATASE 267 U/L (38-126); ANION GAP 13 (5-19); BILIRUBIN,DIRECT 2.1 mg/dL (0.0-0.4); BLOOD UREA NITROGEN 11 mg/dL (7-20); CALCIUM 8.7 mg/dL (8.4-10.2); CARBON DIOXIDE 23 mmol/L (22-30); CHLORIDE 102 mmol/L (98-107); GLUCOSE 92 mg/dL (75-110); POTASSIUM 3.9 mmol/L (3.6-5.0)
[2019-02-13 06:46] LABS: ASPARTATE AMINO TRANSFERASE 1398 U/L (14-36); BILIRUBIN,TOTAL 4.4 mg/dL (0.2-1.3)
[2019-02-13 06:50] LABS: HEMATOCRIT 33.6 % (36.0-47.0); HEMOGLOBIN 11.5 g/dL (12.0-15.5); MEAN CORPUSCULAR HEMOGLOBIN 30.4 pg (27.0-33.4); MEAN CORPUSCULAR HGB CONC 34.1 g/dL (32.0-36.0); MEAN CORPUSCULAR VOLUME 89 fl (80-97); PLATELET COUNT 209 10^3/uL (150-450); RED BLOOD COUNT 3.77 10^6/uL (3.72-5.28); RED CELL DISTRIBUTION WIDTH 12.8 % (11.5-14.0); WHITE BLOOD COUNT 14.4 10^3/uL (4.0-10.5)
[2019-02-13 07:12] LABS: ABSOLUTE LYMPHOCYTES# (MANUAL) 0.6 10^3/uL (0.5-4.7); ABSOLUTE MONOCYTES # (MANUAL) 0.6 10^3/uL (0.1-1.4); BAND NEUTROPHILS % (MANUAL) 4 % (3-5); BASOPHILS % (MANUAL) 0 % (0-2); EOSINOPHILS % (MANUAL) 0 % (0-6); LYMPHOCYTES % (MANUAL) 4 % (13-45); MONOCYTES % (MANUAL) 4 % (3-13); NUCLEATED RED BLOOD CELLS 1 /100 WBC (0); PLATELET COMMENT ADEQUATE; RBC MORPHOLOGY COMMENT NORMO-CYTIC/CHROMIC; SEGMENTED NEUTROPHILS % (MAN) 88 % (42-78); TOTAL CELLS COUNTED 100
[2019-02-13] MEDS ORDERED: HYDRALAZINE HCL INJ/PF 20 MG/1 ML SDV IV PRN (09:00)
[2019-02-13 09:29] LABS: ALBUMIN 3.3 g/dL (3.5-5.0); ALKALINE PHOSPHATASE 256 U/L (38-126); ANION GAP 10 (5-19); BILIRUBIN,DIRECT 2.6 mg/dL (0.0-0.4); BILIRUBIN,TOTAL 5.1 mg/dL (0.2-1.3); BLOOD UREA NITROGEN 10 mg/dL (7-20); CALCIUM 8.5 mg/dL (8.4-10.2); CARBON DIOXIDE 24 mmol/L (22-30); CHLORIDE 105 mmol/L (98-107); GLUCOSE 81 mg/dL (75-110); POTASSIUM 3.9 mmol/L (3.6-5.0); TOTAL PROTEIN 5.9 g/dL (6.3-8.2)
[2019-02-13 09:38] LABS: ASPARTATE AMINO TRANSFERASE 1125 U/L (14-36)
[2019-02-13] MEDS: METOPROLOL TARTRATE 25 MG TABLET PO SCH ×2 (09:43→21:47)
[2019-02-13] MEDS: PIPERACILLIN SODIUM/TAZOBACTAM 3.375 GM in NORMAL SALINE 100 ML IV SCH ×3 (09:44→21:26)
[2019-02-13] MEDS: PANTOPRAZOLE SODIUM 40 MG VIAL IV SCH ×2 (09:44→21:28)
[2019-02-13] MEDS ORDERED: METRONIDAZOLE 500 MG/NS RTU 500 MG/100 ML RTUPB IV SCH (10:00)
[2019-02-13] MEDS ORDERED: MORPHINE SULFATE 10 MG/ML INJ IV PRN (10:51)
--- NOTE | 2019-02-13 11:57 | PDOC PROGRESS REPORT ---
Subjective Progress Note for:: 02/13/19 Subjective:: Patient complains of abdominal pain. She is a poor historian. No fever overnight. Reason For Visit: ACUTE CALCULUS CHOLECYSTITIS,FEVER As above. Physical Exam Vital Signs: Temp Pulse Resp BP Pulse Ox 97.4 F 81 18 127/78 H 98 02/13/19 08:00 02/13/19 08:00 02/13/19 08:00 02/13/19 08:00 02/13/19 08:00 Pulse Oximeter Continuous Start: 02/12/19 17:16 Freq: RTQ4 Status: Active Protocol: Document 02/13/19 08:00 LDA (Rec: 02/13/19 08:34 [id number]) Pulse Oximetry Assessment Oxygen Saturation (92-100) 99 Oxygen Delivery Method Room Air Fraction of Inspired Oxygen (FIO2) 21 Equipment Usage Equipment in Use Continuous SpO2 Machine # [id number] Intake & Output 02/12/19 02/13/19 02/14/19 06:59 06:59 06:59 Intake Total 2350 Balance 2350 Weight 52.2 kg General appearance: PRESENT: no acute distress GI/Abdominal exam: PRESENT: other - The abdomen is soft, nontender there are no peritoneal signs no rigidity. There is mild right upper quadrant tenderness to deep palpation. Results Laboratory Results: 02/13/19 05:17 02/13/19 08:04 02/12/19 02/12/19 02/12/19 12:55 12:55 15:50 WBC 14.1 H RBC 4.08 Hgb 12.3 Hct 36.1 MCV 89 MCH 30.2 MCHC 34.1 RDW 12.3 Plt Count 306 Seg Neutrophils % 79.0 H Sodium 139.5 Potassium 3.8 Chloride 100 Carbon Dioxide 27 Anion Gap 13 BUN 9 Creatinine 0.79 Est GFR ( Amer) > 60 Glucose 112 H Lactic Acid 1.9 Calcium 9.5 Magnesium 1.9 Total Bilirubin 0.8 AST 41 H Alkaline Phosphatase 86 Total Protein 6.8 Albumin 4.0 Lipase 96.3 Urine Color Urine Appearance Urine pH Ur Specific [place] Urine Protein Urine Glucose (UA) Urine Ketones Urine Blood Urine Nitrite Ur Leukocyte Esterase Urine WBC (Auto) Urine RBC (Auto) 02/12/19 02/13/19 02/13/19 15:50 02:15 05:17 WBC 14.4 H RBC 3.77 Hgb 11.5 L Hct 33.6 L MCV 89 MCH 30.4 MCHC 34.1 RDW 12.8 Plt Count 209 Seg Neutrophils % Not Reportable Sodium Potassium Chloride Carbon Dioxide Anion Gap BUN Creatinine Est GFR ( Amer) Glucose Lactic Acid Calcium Magnesium Total Bilirubin AST Alkaline Phosphatase Total Protein Albumin Lipase Urine Color YELLOW DARÍO Urine Appearance CLEAR CLEAR Urine pH 9.0 7.0 Ur Specific [place] 1.029 1.025 Urine Protein NEGATIVE 30 H Urine Glucose (UA) NEGATIVE NEGATIVE Urine Ketones NEGATIVE NEGATIVE Urine Blood MODERATE H MODERATE H Urine Nitrite NEGATIVE NEGATIVE Ur Leukocyte Esterase NEGATIVE NEGATIVE Urine WBC (Auto) 2 9 Urine RBC (Auto) 43 46 02/13/19 02/13/19 05:17 08:04 WBC RBC Hgb Hct MCV MCH MCHC RDW Plt Count Seg Neutrophils % Sodium 138.1 139.3 Potassium 3.9 3.9 Chloride 102 105 Carbon Dioxide 23 24 Anion Gap 13 10 BUN 11 10 Creatinine 0.83 0.79 Est GFR ( Amer) > 60 > 60 Glucose 92 81 Lactic Acid Calcium 8.7 8.5 Magnesium Total Bilirubin 4.4 H D 5.1 H AST 1398 H 1125 H Alkaline Phosphatase 267 H 256 H Total Protein 6.0 L 5.9 L Albumin 3.3 L 3.3 L Lipase Urine Color Urine Appearance Urine pH Ur Specific [place] Urine Protein Urine Glucose (UA) Urine Ketones Urine Blood Urine Nitrite Ur Leukocyte Esterase Urine WBC (Auto) Urine RBC (Auto) 02/12/19 17:00 Blood Blood Culture (PCR) - Final Escherichia Coli 02/12/19 15:50 Blood Blood Culture (PCR) - Final Escherichia Coli 02/12/19 12:55 Troponin I < 0.012 Impressions: Chest X-Ray 02/12/19 13:19 IMPRESSION: Hyperinflated lungs likely reflecting COPD. Minimal areas of subsegmental atelectasis but no acute infiltrate or other acute abnormality. Abdomen/Pelvis CT 02/12/19 13:20 IMPRESSION: Moderate inflammatory changes adjacent to the gallbladder with wall thickening suggesting acute cholecystitis. Mild biliary dilatation. No calcified stones identified. Abdomen Ultrasound 02/12/19 14:57 IMPRESSION: Multiple gallstones -moderate sludge with increased gallbladder wall thickness and small amount of pericholecystic fluid. Assessment & Plan - Diagnosis (1) Acute calculous cholecystitis Is this a current diagnosis for this admission?: Yes Plan: Impression: Persisting abdominal pain, subacute, due to acute cholecystitis with cholelithiasis based on clinical history, and abnormal CT scan showing thickened gallbladder wall, pericholecystic fluid. Sepsis is stabilized on IV antibiotics. Liver function studies elevated with total bilirubin in excess of 5. Dilated common bile duct on CT scan, not reported on ultrasound. Clinical and radiographic and serologic picture concerning for retained common duct stone. Recommendations: 1. Continue IV fluids, intravenous antibiotics and n.p.o. status 2. I have put in a call to Dr. Hi Stacy, export documents clerk, to consider role of ERCP prior to interval cholecystectomy. (2) Elevated LFTs Is this a current diagnosis for this admission?: Yes (3) Dilated bile duct Is this a current diagnosis for this admission?: Yes (4) Coronary artery disease Qualifiers: Coronary Disease-Associated Artery/Lesion type: unspecified vessel or lesion type [place] vs. transplanted heart: [place] heart Associated angina: angina presence unspecified Qualified Code(s): I25.10 - Atherosclerotic heart disease of [place] coronary artery without angina pectoris Is this a current diagnosis for this admission?: Yes (5) Hypertension Qualifiers: Hypertension type: essential hypertension Qualified Code(s): I10 - Essential (primary) hypertension Is this a current diagnosis for this admission?: Yes - Time Time Spent with patient: 15-24 minutes
[2019-02-13] MEDS: KETOROLAC TROMETHAMINE INJ/PF 30 MG/1 ML SDV IV SCH ×2 (15:06→21:27)
--- NOTE | 2019-02-13 18:57 | PDOC PROGRESS REPORT ---
Subjective Progress Note for:: 02/13/19 Subjective:: The patient is a 58-year-old female with a past medical history of CT and asthma; Not on home medications, who was admitted 02/12/2019 by the surgical service for acute calculous cholecystitis. The patient was seen on morning rounds. She was found resting in bed, co mfortably, on room air. She does endorse continued abdominal discomfort with nausea; no episodes of emesis. She does report that her current medication regimen is adequate for controlling her discomfort. She is hopeful to have her cholecystectomy in the near future but does understand that she may need additional images/interventions due to her elevated liver enzymes prior to surgical removal of her gallbladder. She otherwise denies fever, chills, chest pain, palpitations, dyspnea, orthopnea, and cough. She has no other questions or concerns at this time. No concerns per nursing. Reason For Visit: ACUTE CALCULUS CHOLECYSTITIS,FEVER Physical Exam Vital Signs: Temp Pulse Resp BP Pulse Ox 98.3 F 85 16 133/74 H 97 02/13/19 16:00 02/13/19 16:00 02/13/19 16:00 02/13/19 16:00 02/13/19 16:39 Pulse Oximeter Continuous Start: 02/12/19 17:16 Freq: RTQ4 Status: Active Protocol: Document 02/13/19 16:39 JDR (Rec: 02/13/19 16:39 [id number]) Pulse Oximetry Assessment Oxygen Saturation (92-100) 97 Oxygen Delivery Method Room Air Fraction of Inspired Oxygen (FIO2) 21 Equipment Usage Equipment in Use Continuous SpO2 Machine # 10 Intake & Output 02/12/19 02/13/19 02/14/19 06:59 06:59 06:59 Intake Total 2350 100 Balance 2350 100 Weight 52.2 kg General appearance: PRESENT: no acute distress, cooperative, well-developed, we ll-nourished Head exam: PRESENT: atraumatic, normocephalic Eye exam: PRESENT: conjunctiva pink, EOMI, PERRLA. ABSENT: scleral icterus Ear exam: PRESENT: normal external ear exam Mouth exam: PRESENT: moist, tongue midline Respiratory exam: PRESENT: clear to auscultation [place], symmetrical, unlabored, other - Room air. ABSENT: rales, rhonchi, wheezes Cardiovascular exam: PRESENT: RRR, +S1, +S2. ABSENT: diastolic murmur, rubs, systolic murmur Pulses: PRESENT: normal dorsalis pedis pul Vascular exam: PRESENT: normal capillary refill GI/Abdominal exam: PRESENT: diminished bowel sounds, soft, tenderness. ABSENT: distended, guarding, mass, organolmegaly, rebound Rectal exam: PRESENT: deferred Extremities exam: PRESENT: full ROM. ABSENT: calf tenderness, clubbing, pedal edema Neurological exam: PRESENT: alert, awake, oriented to person, oriented to place, oriented to time, oriented to situation, CN II-XII grossly intact. ABSENT: motor sensory deficit Psychiatric exam: PRESENT: flat affect, normal mood. ABSENT: homicidal ideation, suicidal ideation Skin exam: PRESENT: dry, intact, warm. ABSENT: cyanosis, rash Results Laboratory Results: 02/13/19 05:17 02/13/19 08:04 02/13/19 02/13/19 02/13/19 02:15 05:17 05:17 WBC 14.4 H RBC 3.77 Hgb 11.5 L Hct 33.6 L MCV 89 MCH 30.4 MCHC 34.1 RDW 12.8 Plt Count 209 Seg Neutrophils % Not Reportable Sodium 138.1 Potassium 3.9 Chloride 102 Carbon Dioxide 23 Anion Gap 13 BUN 11 Creatinine 0.83 Est GFR ( Amer) > 60 Glucose 92 Calcium 8.7 Total Bilirubin 4.4 H D AST 1398 H Alkaline Phosphatase 267 H Total Protein 6.0 L Albumin 3.3 L Urine Color DARÍO Urine Appearance CLEAR Urine pH 7.0 Ur Specific [place] 1.025 Urine Protein 30 H Urine Glucose (UA) NEGATIVE Urine Ketones NEGATIVE Urine Blood MODERATE H Urine Nitrite NEGATIVE Ur Leukocyte Esterase NEGATIVE Urine WBC (Auto) 9 Urine RBC (Auto) 46 02/13/19 08:04 WBC RBC Hgb Hct MCV MCH MCHC RDW Plt Count Seg Neutrophils % Sodium 139.3 Potassium 3.9 Chloride 105 Carbon Dioxide 24 Anion Gap 10 BUN 10 Creatinine 0.79 Est GFR ( Amer) > 60 Glucose 81 Calcium 8.5 Total Bilirubin 5.1 H AST 1125 H Alkaline Phosphatase 256 H Total Protein 5.9 L Albumin 3.3 L Urine Color Urine Appearance Urine pH Ur Specific [place] Urine Protein Urine Glucose (UA) Urine Ketones Urine Blood Urine Nitrite Ur Leukocyte Esterase Urine WBC (Auto) Urine RBC (Auto) 12/29/19 17:00 Blood Blood Culture (PCR) - Final Escherichia Coli 02/12/19 15:50 Blood Blood Culture (PCR) - Final Escherichia Coli 02/12/19 12:55 Troponin I < 0.012 Impressions: Chest X-Ray 02/12/19 13:19 IMPRESSION: Hyperinflated lungs likely reflecting COPD. Minimal areas of subsegmental atelectasis but no acute infiltrate or other acute abnormality. Abdomen/Pelvis CT 02/12/19 13:20 IMPRESSION: Moderate inflammatory changes adjacent to the gallbladder with wall thickening suggesting acute cholecystitis. Mild biliary dilatation. No calcified stones identified. Abdomen Ultrasound 02/12/19 14:57 IMPRESSION: Multiple gallstones -moderate sludge with increased gallbladder wall thickness and small amount of pericholecystic fluid. Assessment and Plan - Diagnosis (1) Acute calculous cholecystitis Is this a current diagnosis for this admission?: Yes Plan: Primary management per surgery. LFTs are elevated today; Total bili 5.1, AST 1125, ALT 964, alk phos 256. Surgery is consulted with Dr. Stacy for possible ERCP. She has been empirically placed on IV Zosyn. Diet per surgery. Currently receiving full liquid diet. Continue gentle IV fluids. Antiemetics and analgesics as needed. (2) Abdominal pain Qualifiers: Abdominal location: epigastric Qualified Code(s): R10.13 - Epigastric pain Is this a current diagnosis for this admission?: Yes Plan: Secondary to #1. Evaluation management as above. (3) Coronary artery disease Qualifiers: Coronary Disease-Associated Artery/Lesion type: unspecified vessel or lesion type [place] vs. transplanted heart: [place] heart Associated angina: angina p resence unspecified Qualified Code(s): I25.10 - Atherosclerotic heart disease of [place] coronary artery without angina pectoris Is this a current diagnosis for this admission?: Yes Plan: Stable and without acute chest pain at this time. Continue beta-piotr and statin therapy. Holding aspirin until postop. (4) Elevated LFTs Is this a current diagnosis for this admission?: Yes Plan: Secondary to #1. Evaluation management as above. Continue IV fluids. Follow-up chemistry. (5) Hypertension Qualifiers: Hypertension type: essential hypertension Qualified Code(s): I10 - Esse ntial (primary) hypertension Is this a current diagnosis for this admission?: Yes Plan: Adequate blood pressure control today. Continue metoprolol 12.5 mg twice daily. IV hydralazine as needed for blood pressure control. Adequate management of acute pain. (6) Tachycardia Is this a current diagnosis for this admission?: Yes Plan: Resolved. Continue to monitor on cardiac telemetry. (7) Bacteremia Is this a current diagnosis for this admission?: Yes Plan: Blood cultures (02/12/2019) positive for E. coli and 4 of 4 bottles. Antibiotics have been adjusted to IV Zosyn. Repeat blood cultures will be obtained tomorrow following 48 hours of appropriate coverage. - Time Time Spent with patient: 25-34 minutes Medications reviewed and adjusted accordingly: Yes Anticipated discharge: Home
[2019-02-13] MEDS: ATORVASTATIN CALCIUM 10 MG TABLET PO SCH (21:47)
[2019-02-14] MEDS: METOCLOPRAMIDE HCL INJ/PF 10 MG/2 ML SDV IV SCH ×5 (01:05→23:06)
[2019-02-14] MEDS: PIPERACILLIN SODIUM/TAZOBACTAM 3.375 GM in NORMAL SALINE 100 ML IV SCH ×4 (02:17→20:29)
[2019-02-14] MEDS: KETOROLAC TROMETHAMINE INJ/PF 30 MG/1 ML SDV IV SCH ×4 (02:18→20:29)
[2019-02-14 06:32] LABS: HEMATOCRIT 31.4 % (36.0-47.0); HEMOGLOBIN 10.8 g/dL (12.0-15.5); MEAN CORPUSCULAR HEMOGLOBIN 30.7 pg (27.0-33.4); MEAN CORPUSCULAR HGB CONC 34.5 g/dL (32.0-36.0); MEAN CORPUSCULAR VOLUME 89 fl (80-97); PLATELET COUNT 174 10^3/uL (150-450); RED BLOOD COUNT 3.52 10^6/uL (3.72-5.28); RED CELL DISTRIBUTION WIDTH 12.5 % (11.5-14.0); WHITE BLOOD COUNT 11.4 10^3/uL (4.0-10.5)
[2019-02-14 06:53] LABS: ALBUMIN 3.1 g/dL (3.5-5.0); ALKALINE PHOSPHATASE 215 U/L (38-126); ANION GAP 12 (5-19); ASPARTATE AMINO TRANSFERASE 362 U/L (14-36); BILIRUBIN,DIRECT 1.6 mg/dL (0.0-0.4); BLOOD UREA NITROGEN 12 mg/dL (7-20); CALCIUM 8.6 mg/dL (8.4-10.2); CARBON DIOXIDE 20 mmol/L (22-30); CHLORIDE 106 mmol/L (98-107); POTASSIUM 3.7 mmol/L (3.6-5.0); TOTAL PROTEIN 5.6 g/dL (6.3-8.2)
[2019-02-14 07:12] LABS: GLUCOSE 58 mg/dL (75-110)
--- NOTE | 2019-02-14 08:18 | PDOC PROGRESS REPORT ---
Subjective Progress Note for:: 02/14/19 Subjective:: feels ok, hungry, wants to eat Reason For Visit: ACUTE CALCULUS CHOLECYSTITIS,FEVER Physical Exam Vital Signs: Temp Pulse Resp BP Pulse Ox 98.0 F 91 17 121/60 96 02/14/19 00:00 02/14/19 07:00 02/14/19 00:00 02/14/19 00:00 02/14/19 04:40 Pulse Oximeter Continuous Start: 02/12/19 17:16 Freq: RTQ4 Status: Active Protocol: Document 02/14/19 04:40 PMU (Rec: 02/14/19 05:33 PMU [id number]) Pulse Oximetry Assessment Oxygen Saturation (92-100) 96 Oxygen Delivery Method Room Air Fraction of Inspired Oxygen (FIO2) 21 Equipment Usage Equipment in Use Continuous SpO2 Machine # 10 Intake & Output 02/13/19 02/14/19 02/15/19 06:59 06:59 06:59 Intake Total 2350 1400 Balance 2350 1400 Weight 52.2 kg 52.5 kg General appearance: PRESENT: no acute distress Head exam: PRESENT: normocephalic Eye exam: PRESENT: EOMI Ear exam: PRESENT: normal external ear exam Mouth exam: PRESENT: moist Teeth exam: PRESENT: poor dentation Neck exam: PRESENT: full ROM Respiratory exam: PRESENT: clear to auscultation carson Cardiovascular exam: PRESENT: RRR Pulses: PRESENT: normal radial pulses Vascular exam: PRESENT: normal capillary refill GI/Abdominal exam: PRESENT: soft Rectal exam: PRESENT: deferred Extremities exam: PRESENT: full ROM Musculoskeletal exam: PRESENT: full ROM Neurological exam: PRESENT: alert, awake, oriented to person, oriented to place Skin exam: PRESENT: dry Results Laboratory Results: 02/14/19 05:54 02/14/19 05:54 02/13/19 02/14/19 02/14/19 08:04 05:54 05:54 WBC 11.4 H RBC 3.52 L Hgb 10.8 L Hct 31.4 L MCV 89 MCH 30.7 MCHC 34.5 RDW 12.5 Plt Count 174 Sodium 139.3 138.0 Potassium 3.9 3.7 Chloride 105 106 Carbon Dioxide 24 20 L Anion Gap 10 12 BUN 10 12 Creatinine 0.79 0.68 Est GFR ( Amer) > 60 > 60 Glucose 81 58 L Calcium 8.5 8.6 Total Bilirubin 5.1 H 3.0 H AST 1125 H 362 H Alkaline Phosphatase 256 H 215 H Total Protein 5.9 L 5.6 L Albumin 3.3 L 3.1 L 02/12/19 17:00 Blood Blood Culture (PCR) - Final Escherichia Coli 02/12/19 15:50 Blood Blood Culture (PCR) - Final Escherichia Coli 02/12/19 12:55 Troponin I < 0.012 Impressions: Chest X-Ray 02/12/19 13:19 IMPRESSION: Hyperinflated lungs likely reflecting COPD. Minimal areas of subsegmental atelectasis but no acute infiltrate or other acute abnormality. Abdomen/Pelvis CT 02/12/19 13:20 IMPRESSION: Moderate inflammatory changes adjacent to the gallbladder with wall thickening suggesting acute cholecystitis. Mild biliary dilatation. No calcified stones identified. Abdomen Ultrasound 02/12/19 14:57 IMPRESSION: Multiple gallstones -moderate sludge with increased gallbladder wall thickness and small amount of pericholecystic fluid. Assessment & Plan - Time Time Spent with patient: 25-34 minutes - Plan Summary Plan Summary: Acute cholecystitis secondary to gallstones. Elevated liver function studies Plan is for ERCP later today and then surgery will make arrangements for laparoscopic cholecystectomy.
[2019-02-14] MEDS: METOPROLOL TARTRATE 25 MG TABLET PO SCH ×2 (09:29→22:18)
[2019-02-14] MEDS: PANTOPRAZOLE SODIUM 40 MG VIAL IV SCH ×2 (09:29→22:18)
[2019-02-14] MEDS: DEXTROSE 5%-NORMAL SALINE 1,000 ML IV PRN (09:29)
[2019-02-14] MEDS ORDERED: SUCCINYLCHOLINE CHLORIDE INJ 200 MG/10 ML VIAL ONE (10:32)
[2019-02-14] MEDS ORDERED: MIDAZOLAM 2 MG/2 ML INJ ONE (15:54)
[2019-02-14] MEDS ORDERED: FENTANYL CITRATE INJ/PF 100 MCG/2 ML AMPUL ONE (15:54)
[2019-02-14] MEDS ORDERED: DEXAMETHASONE SOD PHOSPHATE INJ 4 MG/1 ML VIAL ONE (15:55)
[2019-02-14] MEDS ORDERED: ONDANSETRON HCL INJ/PF 4 MG/2 ML SDV ONE (15:55)
[2019-02-14] MEDS ORDERED: PROPOFOL INJ 200 MG/20 ML VIAL IV ONE (15:55)
[2019-02-14] MEDS ORDERED: GLUCAGON,HUMAN RECOMB 1 MG INJ ONE (17:13)
[2019-02-14] MEDS ORDERED: ONDANSETRON HCL INJ/PF 4 MG/2 ML SDV IV PRN (17:23)
[2019-02-14] MEDS ORDERED: MEPERIDINE HCL/PF INJ 25 MG/1 ML DISP.SYRIN IV PRN (17:23)
[2019-02-14] MEDS ORDERED: DIPHENHYDRAMINE HCL 50 MG/ML VIAL IV PRN (17:23)
--- NOTE | 2019-02-14 17:39 | PDOC CONSULTATION ---
Consultation Consult Date: 02/13/19 Provider Consulted: BASILIA UPTON History of Present Illness Admission Date/PCP: 02/12/19 17:11 History of Present Illness: SANDRA KRISHNAN is a 58 year old femaleWho was admitted on 02/12/2019 with recurrent abdominal pain with ultrasound and CT changes consistent with cholecystitis. She has been having pain off and on for the last 3 to 6 months. She did have a fever of 101.2 on admission with a white count of 18. Her LFTs were basically normal on admission but by the next day her bilirubin has gone up to 4.4 with AST of 1400, ALT of 1038 and alkaline phosphatase of 367. She has multiple gallstones but no dilated bile duct. Past Medical History Cardiac Medical History: Reports: Myocardial Infarction - 2002 Pulmonary Medical History: Reports: Asthma - Reports that "I don't take anything for it" Psychiatric Medical History: Denies: Depression Past Surgical History Past Surgical History: Reports: Orthopedic Surgery - facial reconstruction, Tu bal Ligation Social History Lives with: Alone Smoking Status: Unknown if Ever Smoked Cigarettes Packs Per Day: 1 Electronic Cigarette use?: No Cigars Per Day: 0 Pipes Per Day: 0 Number of Years Smokin Last Time Smoked: 02/15/2005 Frequency of Alcohol Use: None Hx Recreational Drug Use: No Hx Prescription Drug Abuse: No - Advance Directive Resuscitation Status: Full Code Family History Family History: Reviewed & Not Pertinent Parental Family History Reviewed: No Children Family History Reviewed: NA Sibling(s) Family History Reviewed.: NA Medication/Allergy Home Medications: No Home Medications 02/13/19 Allergies/Adverse Reactions: No Known Allergies Allergy (Verified 02/12/19 20:12) Review of Systems All systems: reviewed and no additional remarkable complaints except as stated Physical Exam Vital Signs: Temp Pulse Resp BP Pulse Ox 98.3 F 78 15 139/64 H 98 02/14/19 16:00 02/14/19 16:00 02/14/19 16:00 02/14/19 16:00 02/14/19 16:00 Pulse Oximeter Continuous Start: 02/12/19 17:16 Freq: RTQ4 Status: Complete Protocol: Document 02/14/19 11:15 [facility] (Rec: 02/14/19 11:16 [facility] [id number]) Pulse Oximetry Assessment Oxygen Saturation (92-100) 98 Oxygen Delivery Method Room Air Fraction of Inspired Oxygen (FIO2) 21 Equipment Usage Equipment in Use Continuous SpO2 Machine # 10 Intake & Output 02/13/19 02/14/19 02/15/19 06:59 06:59 06:59 Intake Total 2350 2400 200 Balance 2350 2400 200 Weight 52.2 kg 52.5 kg Exam: General: Patient is alert and looks well. HEENT: There is no pallor or jaundice. PERRLA. Oropharynx normal Respiratory: No chest deformity. No respiratory distress. Chest wall palpitation was unremarkable. Breath sounds were normal Cardiovascular: Heart sounds 1 and 2 normal with no murmurs. Abdominal: Not distended. Soft and nontender. Liver and spleen not palpable. No ascites demonstrated. Bowel sounds active. Rectal examination was deferred. Extremities: No edema Neurological: Alert and oriented x4. Grossly nonfocal. Normal speech Skin: No significant rash Psychological: Normal affect Results Laboratory Results: 02/14/19 05:54 02/14/19 05:54 02/14/19 02/14/19 05:54 05:54 WBC 11.4 H RBC 3.52 L Hgb 10.8 L Hct 31.4 L MCV 89 MCH 30.7 MCHC 34.5 RDW 12.5 Plt Count 174 Sodium 138.0 Potassium 3.7 Chloride 106 Carbon Dioxide 20 L Anion Gap 12 BUN 12 Creatinine 0.68 Est GFR ( Amer) > 60 Glucose 58 L Calcium 8.6 Total Bilirubin 3.0 H AST 362 H Alkaline Phosphatase 215 H Total Protein 5.6 L Albumin 3.1 L 02/12/19 15:50 Blood Blood Culture (PCR) - Final Escherichia Coli 02/12/19 17:00 Blood Blood Culture (PCR) - Final Escherichia Coli 02/12/19 15:50 Clean Catch Midstream Urine Culture - Final NO GROWTH 2 DAYS 02/12/19 12:55 Troponin I < 0.012 Impressions: Chest X-Ray 02/12/19 13:19 IMPRESSION: Hyperinflated lungs likely reflecting COPD. Minimal areas of subsegmental atelectasis but no acute infiltrate or other acute abnormality. Abdomen/Pelvis CT 02/12/19 13:20 IMPRESSION: Moderate inflammatory changes adjacent to the gallbladder with wall thickening suggesting acute cholecystitis. Mild biliary dilatation. No calcified stones identified. Abdomen Ultrasound 02/12/19 14:57 IMPRESSION: Multiple gallstones -moderate sludge with increased gallbladder wa ll thickness and small amount of pericholecystic fluid. Assessment & Plan - Diagnosis (1) Elevated LFTs Is this a current diagnosis for this admission?: Yes Plan: Her jaundice in association with gallstones is suggestive of choledocholithiasis. The need for an ERCP was explained to the patient including the risk and benefits. She is on antibiotics for cholecystitis (2) Gallstones Is this a current diagnosis for this admission?: Yes (3) Acute cholecystitis Is this a current diagnosis for this admission?: Yes
--- NOTE | 2019-02-14 17:40 | Operative Report ---
Operative Report DATE OF SURGERY: 02/14/19 Operative Report: Pre-op diagnosis: Jaundice and gallstones Post-op diagnosis: 1. Common bile duct sludge 2. Periampullary diverticulum Surgery: ERCP with sphincterotomy and balloon sludge extraction Medications: As per anesthesia Tissue removed: None Procedure: After informed consent obtained from patient, the throat was sprayed with Hurricane and conscious sedation was achieved. The ERCP endoscope was then inserted into the esophagus blindly and advanced into the stomach. The duodenum was entered and the ampulla was identified. Using the triple-lumen sphincterotomy catheter the common bile duct was freely cannulated. A cholangiogram was obtained which showed possible filling defect in the distal common bile duct. The common bile duct and intrahepatic ducts did not appear dilated. A good sized sphincterotomy was then performed using the endocut mode. The catheter was removed over the guidewire before a 12-15 mm balloon catheter was inserted. The balloon was inflated to 12 mm in the proximal common bile duct and pulled down the duct. Some sludge was extracted. The duct was swept one more time. A balloon occlusion cholangiogram was normal. The pancreatic duct was intentionally not cannulated. Patient tolerated procedure well. Findings Common bile duct: Small amount of sludge removed Intrahepatic ducts: Normal Pancreatic duct: Not cannulated Plan: Proceed with cholecystectomy OPERATION: .
--- NOTE | 2019-02-14 18:38 | PDOC PROGRESS REPORT ---
Subjective Progress Note for:: 02/14/19 Subjective:: The patient is a 58-year-old female with a past medical history of MS and asthma; Not on home medications, who was admitted 02/12/2019 by the surgical service for acute calculous cholecystitis. The patient was seen on morning rounds. She was found resting in bed, co mfortably, on room air. She does endorse continued abdominal discomfort with nausea; no episodes of emesis. She does report that her current medication regimen is adequate for controlling her discomfort. She otherwise denies fever, chills, chest pain, palpitations, dyspnea, orthopnea, and cough. She has no other questions or concerns at this time. No concerns per nursing. Reason For Visit: ACUTE CALCULUS CHOLECYSTITIS,FEVER Physical Exam Vital Signs: Temp Pulse Resp BP Pulse Ox 98.1 F 87 16 131/73 H 93 02/14/19 18:09 02/14/19 18:09 02/14/19 18:09 02/14/19 18:09 02/14/19 18:09 Pulse Oximeter Continuous Start: 02/12/19 17:16 Freq: RTQ4 Status: Complete Protocol: Document 02/14/19 11:15 [facility] (Rec: 02/14/19 11:16 [facility] [id number]) Pulse Oximetry Assessment Oxygen Saturation (92-100) 98 Oxygen Delivery Method Room Air Fraction of Inspired Oxygen (FIO2) 21 Equipment Usage Equipment in Use Continuous SpO2 Machine # 10 Intake & Output 02/13/19 02/14/19 02/15/19 06:59 06:59 06:59 Intake Total 2350 2400 1200 Balance 2350 2400 1200 Weight 52.2 kg 52.5 kg General appearance: PRESENT: no acute distress, cooperative, well-developed, well-nourished Head exam: PRESENT: atraumatic, normocephalic Eye exam: PRESENT: conjunctiva pink, EOMI, PERRLA. ABSENT: scleral icterus Ear exam: PRESENT: normal external ear exam Mouth exam: PRESENT: moist, tongue midline Respiratory exam: PRESENT: clear to auscultation carson, symmetrical, unlabored. ABSENT: rales, rhonchi, wheezes Cardiovascular exam: PRESENT: RRR, +S1, +S2. ABSENT: diastolic murmur, rubs, systolic murmur Pulses: PRESENT: normal dorsalis pedis pul Vascular exam: PRESENT: normal capillary refill GI/Abdominal exam: PRESENT: hypoactive bowel sounds, soft, tenderness. ABSENT: distended, guarding, mass, organolmegaly, rebound Rectal exam: PRESENT: deferred Extremities exam: PRESENT: full ROM. ABSENT: calf tenderness, clubbing, pedal edema Neurological exam: PRESENT: alert, awake, oriented to person, oriented to place, oriented to time, oriented to situation, CN II-XII grossly intact. ABSENT: motor sensory deficit Psychiatric exam: PRESENT: flat affect, normal mood. ABSENT: homicidal ideation, suicidal ideation Skin exam: PRESENT: dry, intact, warm. ABSENT: cyanosis, rash Results Laboratory Results: 02/14/19 05:54 02/14/19 05:54 02/14/19 02/14/19 05:54 05:54 WBC 11.4 H RBC 3.52 L Hgb 10.8 L Hct 31.4 L MCV 89 MCH 30.7 MCHC 34.5 RDW 12.5 Plt Count 174 Sodium 138.0 Potassium 3.7 Chloride 106 Carbon Dioxide 20 L Anion Gap 12 BUN 12 Creatinine 0.68 Est GFR ( Amer) > 60 Glucose 58 L Calcium 8.6 Total Bilirubin 3.0 H AST 362 H Alkaline Phosphatase 215 H Total Protein 5.6 L Albumin 3.1 L 02/12/19 15:50 Blood Blood Culture (PCR) - Final Escherichia Coli 02/12/19 17:00 Blood Blood Culture (PCR) - Final Escherichia Coli 02/12/19 15:50 Clean Catch Midstream Urine Culture - Final NO GROWTH 2 DAYS 02/12/19 12:55 Troponin I < 0.012 Impressions: Chest X-Ray 02/12/19 13:19 IMPRESSION: Hyperinflated lungs likely reflecting COPD. Minimal areas of subsegmental atelectasis but no acute infiltrate or other acute abnormality. Abdomen/Pelvis CT 02/12/19 13:20 IMPRESSION: Moderate inflammatory changes adjacent to the gallbladder with wall thickening suggesting acute cholecystitis. Mild biliary dilatation. No calcified stones identified. Abdomen Ultrasound 02/12/19 14:57 IMPRESSION: Multiple gallstones -moderate sludge with increased gallbladder wall thickness and small amount of pericholecystic fluid. Assessment and Plan - Diagnosis (1) Acute calculous cholecystitis Is this a current diagnosis for this admission?: Yes Plan: Primary management per surgery. LFTs are elevated, now trending down. Surgery is consulted; possible lap alexey tomorrow. Dr. Stacy is consulted; ERCP today. She has been empirically placed on IV Zosyn; day #2. Diet per surgery. Continue gentle IV fluids. Antiemetics and analgesics as needed. (2) Abdominal pain Qualifiers: Abdominal location: epigastric Qualified Code(s): R10.13 - Epigastric pain Is this a current diagnosis for this admission?: Yes Plan: Secondary to #1. Evaluation management as above. (3) Coronary artery disease Qualifiers: Coronary Disease-Associated Artery/Lesion type: unspecified vessel or lesion type [place] vs. transplanted heart: [place] heart Associated angina: angina presence unspecified Qualified Code(s): I25.10 - Atherosclerotic heart disease of [place] coronary artery without angina pectoris Is this a current diagnosis for this admission?: Yes Plan: Stable and without acute chest pain at this time. Continue beta-piotr and statin therapy. Holding aspirin until postop. (4) Elevated LFTs Is this a current diagnosis for this admission?: Yes Plan: Trending down; secondary to #1. Evaluation and management as above. Continue IV fluids. Follow-up chemistry. (5) Hypertension Qualifiers: Hypertension type: essential hypertension Qualified Code(s): I10 - Essential (primary) hypertension Is this a current diagnosis for this admission?: Yes Plan: Adequate blood pressure control today. Continue metoprolol 12.5 mg twice daily. IV hydralazine as needed for blood pressure control. Adequate management of acute pain. (6) Tachycardia Is this a current diagnosis for this admission?: Yes Plan: Resolved. Continue to monitor on cardiac telemetry. (7) Bacteremia Is this a current diagnosis for this admission?: Yes Plan: Blood cultures (02/12/2019) positive for E. coli and 4 of 4 bottles. Repeat blood cultures (02/14/2019) pending. Antibiotics have been adjusted to IV Zosyn. - Time Time Spent with patient: 15-24 minutes Medications reviewed and adjusted accordingly: Yes Anticipated discharge: Home
[2019-02-14] MEDS: ATORVASTATIN CALCIUM 10 MG TABLET PO SCH (22:17)
[2019-02-15] MEDS: KETOROLAC TROMETHAMINE INJ/PF 30 MG/1 ML SDV IV SCH ×4 (02:53→20:09)
[2019-02-15] MEDS: PIPERACILLIN SODIUM/TAZOBACTAM 3.375 GM in NORMAL SALINE 100 ML IV SCH ×4 (02:54→20:09)
[2019-02-15] MEDS: METOCLOPRAMIDE HCL INJ/PF 10 MG/2 ML SDV IV SCH ×4 (06:16→23:06)
[2019-02-15] MEDS: DEXTROSE 5%-NORMAL SALINE 1,000 ML IV PRN (06:17)
[2019-02-15 07:03] LABS: ABSOLUTE LYMPHOCYTES (AUTO) 0.9 10^3/uL (0.5-4.7); ABSOLUTE MONOCYTES (AUTO) 0.3 10^3/uL (0.1-1.4); BASOPHILS % (AUTO) 0.1 % (0-2); HEMATOCRIT 33.1 % (36.0-47.0); HEMOGLOBIN 11.3 g/dL (12.0-15.5); LYMPHOCYTES % (AUTO) 8.8 % (13-45); MEAN CORPUSCULAR HEMOGLOBIN 30.2 pg (27.0-33.4); MEAN CORPUSCULAR HGB CONC 34.1 g/dL (32.0-36.0); MEAN CORPUSCULAR VOLUME 89 fl (80-97); MONOCYTES % (AUTO) 3.1 % (3-13); PLATELET COUNT 232 10^3/uL (150-450); RED BLOOD COUNT 3.73 10^6/uL (3.72-5.28); RED CELL DISTRIBUTION WIDTH 12.7 % (11.5-14.0); TOTAL CELLS COUNTED % (AUTO) 100 %; WHITE BLOOD COUNT 10.3 10^3/uL (4.0-10.5)
[2019-02-15 07:24] LABS: ALBUMIN 3.4 g/dL (3.5-5.0); ALKALINE PHOSPHATASE 229 U/L (38-126); ANION GAP 12 (5-19); ASPARTATE AMINO TRANSFERASE 112 U/L (14-36); BILIRUBIN,DIRECT 0.6 mg/dL (0.0-0.4); BILIRUBIN,TOTAL 1.4 mg/dL (0.2-1.3); BLOOD UREA NITROGEN 7 mg/dL (7-20); CARBON DIOXIDE 23 mmol/L (22-30); CHLORIDE 103 mmol/L (98-107); GLUCOSE 131 mg/dL (75-110); TOTAL PROTEIN 6.1 g/dL (6.3-8.2)
[2019-02-15] MEDS ORDERED: DEXTROSE 5%-NORMAL SALINE 1,000 ML IV PRN (08:10)
--- NOTE | 2019-02-15 09:16 | RADIOLOGY REPORT (SQ) ---
EXAM DESCRIPTION: ENDO CATH BILI/PANCREATIC COMPLETED DATE/TIME: 02/14/2019 6:00 pm REASON FOR STUDY: ERCP COMPARISON: None. FLUOROSCOPY TIME: 2.8 minutes. 11 images saved to PACS. TECHNIQUE: Intra-operative images acquired during surgical procedure to evaluate progress. NUMBER OF IMAGES: 11 images. LIMITATIONS: None. FINDINGS: Images acquired during ERCP. IMPRESSION: IMAGE(S) OBTAINED DURING PROCEDURE. COMMENT: Quality ID [id number]: Final reports for procedures using fluoroscopy that document radiation exp osure indices, or exposure time and number of fluorographic images (if radiation exposure indices are not available) Please consult full operative report of the attending physician for description of the procedure. TECHNICAL DOCUMENTATION: JOB ID: [id number] [employer]- All Rights Reserved Reading location - IP/workstation name: [email or web address]
[2019-02-15] MEDS: METOPROLOL TARTRATE 25 MG TABLET PO SCH ×2 (10:06→21:15)
[2019-02-15] MEDS: PANTOPRAZOLE SODIUM 40 MG VIAL IV SCH ×2 (10:06→21:15)
[2019-02-15] MEDS ORDERED: GLYCOPYRROLATE 1 MG/5 ML VIAL ONE (10:31)
[2019-02-15] MEDS ORDERED: NEOSTIGMINE METHYLSULFATE 10 MG/10 ML VIAL ONE (10:31)
[2019-02-15] MEDS ORDERED: KETOROLAC TROMETHAMINE 60 MG/2 ML SDV ONE (10:31)
[2019-02-15] MEDS ORDERED: DEXAMETHASONE SOD PHOSPHATE INJ 4 MG/1 ML VIAL ONE (10:31)
[2019-02-15] MEDS ORDERED: ONDANSETRON HCL INJ/PF 4 MG/2 ML SDV ONE (10:31)
[2019-02-15] MEDS ORDERED: ROCURONIUM BROMIDE INJ 50 MG/5 ML VIAL IV ONE (10:31)
[2019-02-15] MEDS ORDERED: LIDOCAINE 2% INJ-PF (20 MG/ML) 2 ML AMPUL ONE (10:31)
[2019-02-15] MEDS ORDERED: PROPOFOL INJ 200 MG/20 ML VIAL IV ONE (10:39)
[2019-02-15] MEDS ORDERED: MIDAZOLAM 2 MG/2 ML INJ ONE (10:39)
[2019-02-15] MEDS ORDERED: HYDROMORPHONE HCL INJ/PF 2 MG/ML AMPULE ONE (10:39)
[2019-02-15] MEDS ORDERED: BUPIVACAINE HCL 0.25 % INJ/PF (2.5 MG/1 ML) 30 ML VIAL ONE (11:06)
[2019-02-15] MEDS: LIDOCAINE 1%/EPINEPHRINE INJ 20 ML VIAL ONE ×2 (11:28→12:03)
[2019-02-15] MEDS ORDERED: OXYCODONE-ACETAMINOPHEN 5-325 MG TABLET PO PRN ×2 (11:30)
[2019-02-15] MEDS ORDERED: MEPERIDINE HCL/PF INJ 25 MG/1 ML DISP.SYRIN IV PRN (11:30)
[2019-02-15] MEDS ORDERED: FENTANYL CITRATE INJ/PF 100 MCG/2 ML AMPUL IV PRN ×3 (11:30)
[2019-02-15] MEDS ORDERED: ONDANSETRON HCL INJ/PF 4 MG/2 ML SDV IV PRN (11:30)
[2019-02-15] MEDS ORDERED: PROMETHAZINE HCL INJ 25 MG/1 ML VIAL IV PRN (11:30)
[2019-02-15] MEDS ORDERED: DIPHENHYDRAMINE HCL 50 MG/ML VIAL IV PRN (11:30)
--- NOTE | 2019-02-15 12:31 | Operative Report ---
Operative Report DATE OF SURGERY: 02/15/19 PREOPERATIVE DIAGNOSIS: Cholelithiasis and post ERCP for common bile duct sludge POSTOPERATIVE DIAGNOSIS: The same with acute cholecystitis OPERATION: Laparoscopic cholecystectomy SURGEON: QUYNH MCCLAIN ANESTHESIA: GA COMPLICATIONS: None ESTIMATED BLOOD LOSS: 10 cc QUANTITATIVE BLOOD LOSS: 10 INTRAOPERATIVE FINDINGS: Has thickened gallbladder wall with light whitish bile PROCEDURE: Patient was placed in supine position and after adequate general anesthesia the abdomen was then prepped and draped in the usual sterile fashion. Appropriate timeout was then called. Next a supraumbilical elliptical incision was made and the fascia grasped with Beulah clamps and divided between the 2 Beulah clamps. Finger dissection through the peritoneum was done and minimal adhesions are noted. A central trocar was then inserted through the fascia to the abdomen and CO2 insufflated through the trocar to a pressure of 15 mmHg. 3 other trochars were placed 5 mm in the subxiphoid area and 2 5 mm in the right upper quadrant under direct vision. Next the gallbladder was noted to be somewhat thickened but was able to grasp with a grasper the fundus. Blunt dissection of adhesions around infundibulum was done. Infundibulum was then better visualized and subsequently grasped with grasper. Cystic duct was then dissected as well as the cystic artery. After the angle of safety established the cystic duct was then clipped 3 times proximally and once distal close of the gallbladder and divided between the distal clips. Cystic artery was also clipped and subsequently divided and cauterized with the use of harmonic marietta between the clip and the gallbladder. The gallbladder was then dissected off the liver bed with the use of harmonic marietta. Prior to completely removal of the gallbladder the wall was inadvertently opened with the harmonic marietta and small amount of light whitish fluid extruded out. This indicates possibility of occlusion of the cystic duct causing hydrops of the gallbladder. The most of the distal part of the gallblad mia was peeled off from the liver and there is some oozing noted. This oozing was controlled with spatula cautery. The gallbladder was then completely removed from the liver bed and placed in an Endobag and pulled out through the umbilical port. The Hodges trocar was then put back and liver bed irrigated and no evidence of active bleeding noted. A piece of Surgicel was then placed in liver bed to make sure of the hemostasis. Practically all of the irrigation was then suctioned out. All the trochars were then removed and CO2 allowed to come out through the trocar sites. The supraumbilical fascial defect was then closed with a [id number] suture using 0 Vicryl and the 2 stay sutures placed earlier were then tied together for better closure. Marcaine with epinephrine was then injected through the fascia and all the skin incision sites. The skin incisions were then closed with running subcuticular closure using 4-0 Vicryl undyed. Sterile dressings placed over the operative sites. Needle instrument sponge count were all correct and estimated blood loss about 10 cc. Patient then brought to PACU extubated in satisfactory condition.
[2019-02-15 13:22] LABS: ABSOLUTE LYMPHOCYTES (AUTO) 0.7 10^3/uL (0.5-4.7); ABSOLUTE MONOCYTES (AUTO) 0.2 10^3/uL (0.1-1.4); ABSOLUTE NEUT (AUTO) 9.2 10^3/uL (1.7-8.2); BASOPHILS % (AUTO) 0.1 % (0-2); HEMATOCRIT 34.7 % (36.0-47.0); HEMOGLOBIN 11.9 g/dL (12.0-15.5); MEAN CORPUSCULAR HEMOGLOBIN 30.7 pg (27.0-33.4); MEAN CORPUSCULAR HGB CONC 34.2 g/dL (32.0-36.0); MEAN CORPUSCULAR VOLUME 90 fl (80-97); PLATELET COUNT 249 10^3/uL (150-450); RED BLOOD COUNT 3.87 10^6/uL (3.72-5.28); RED CELL DISTRIBUTION WIDTH 12.5 % (11.5-14.0); SEGMENTED NEUTROPHILS % (AUTO) 90.9 % (42-78); TOTAL CELLS COUNTED % (AUTO) 100 %; WHITE BLOOD COUNT 10.1 10^3/uL (4.0-10.5)
--- NOTE | 2019-02-15 16:32 | PDOC PROGRESS REPORT ---
Subjective Progress Note for:: 02/15/19 Subjective:: The patient is a 58-year-old female with a past medical history of [place] and asthma; Not on home medications, who was admitted 02/12/2019 by the surgical service for acute calculous cholecystitis. The patient was seen on morning rounds. She was found resting in bed, co mfortably, on room air. She does endorse continued abdominal discomfort with nausea; no episodes of emesis. She does report that her current medication regimen is adequate for controlling her discomfort. Looking forward to melony blackburn today; hopeful to be discharged tomorrow. She denies fever, chills, chest pain, palpitations, dyspnea, orthopnea, and cough. She has no other questions or concerns at this time. No concerns per nursing. Reason For Visit: ACUTE CALCULUS CHOLECYSTITIS,FEVER Physical Exam Vital Signs: Temp Pulse Resp BP Pulse Ox 97.5 F 74 15 144/76 H 94 02/15/19 14:00 02/15/19 14:00 02/15/19 14:00 02/15/19 14:00 02/15/19 14:00 Pulse Oximeter Continuous Start: 02/12/19 17:16 Freq: RTQ4 Status: Complete Protocol: Document 02/14/19 11:15 [facility] (Rec: 02/14/19 11:16 [facility] [id number]) Pulse Oximetry Assessment Oxygen Saturation (92-100) 98 Oxygen Delivery Method Room Air Fraction of Inspired Oxygen (FIO2) 21 Equipment Usage Equipment in Use Continuous SpO2 Machine # 10 Intake & Output 02/14/19 02/15/19 02/16/19 06:59 06:59 06:59 Intake Total 2400 2400 1200 Output Total 10 Balance 2400 2400 1190 Weight 52.5 kg 52.8 kg General appearance: PRESENT: no acute distress, well-developed, well-nourished Head exam: PRESENT: atraumatic, normocephalic Eye exam: PRESENT: conjunctiva pink, EOMI, PERRLA. ABSENT: scleral icterus Ear exam: PRESENT: normal external ear exam Mouth exam: PRESENT: moist, tongue midline Neck exam: ABSENT: carotid bruit, JVD, lymphadenopathy, thyromegaly Respiratory exam: PRESENT: clear to auscultation carson. ABSENT: rales, rhonchi, wheezes Cardiovascular exam: PRESENT: RRR. ABSENT: diastolic murmur, rubs, systolic murmur Pulses: PRESENT: normal dorsalis pedis pul Vascular exam: PRESENT: normal capillary refill GI/Abdominal exam: PRESENT: normal bowel sounds, soft. ABSENT: distended, guarding, mass, organolmegaly, rebound, tenderness Rectal exam: PRESENT: deferred Extremities exam: PRESENT: full ROM. ABSENT: calf tenderness, clubbing, pedal edema Neurological exam: PRESENT: alert, awake, oriented to person, oriented to place, oriented to time, oriented to situation, CN II-XII grossly intact. ABSENT: motor sensory deficit Psychiatric exam: PRESENT: appropriate affect, normal mood. ABSENT: homicidal ideation, suicidal ideation Skin exam: PRESENT: dry, intact, warm. ABSENT: cyanosis, rash Results Laboratory Results: 02/15/19 13:14 02/15/19 06:27 02/15/19 02/15/19 02/15/19 06:27 06:27 13:14 WBC 10.3 10.1 RBC 3.73 3.87 Hgb 11.3 L 11.9 L Hct 33.1 L 34.7 L MCV 89 90 MCH 30.2 30.7 MCHC 34.1 34.2 RDW 12.7 12.5 Plt Count 232 249 Seg Neutrophils % 88.0 H 90.9 H Sodium 138.3 Potassium 4.0 Chloride 103 Carbon Dioxide 23 Anion Gap 12 BUN 7 Creatinine 0.61 Est GFR ( Amer) > 60 Glucose 131 H Calcium 9.0 Total Bilirubin 1.4 H AST 112 H Alkaline Phosphatase 229 H Total Protein 6.1 L Albumin 3.4 L 02/12/19 17:00 Blood Blood Culture (PCR) - Final Escherichia Coli 02/12/19 17:00 Blood Blood Culture - Final Escherichia Coli 02/12/19 15:50 Blood Blood Culture (PCR) - Final Escherichia Coli 02/12/19 15:50 Blood Blood Culture - Final Escherichia Coli 02/12/19 12:55 Troponin I < 0.012 Impressions: Chest X-Ray 02/12/19 13:19 IMPRESSION: Hyperinflated lungs likely reflecting COPD. Minimal areas of subsegmental atelectasis but no acute infiltrate or other acute abnormality. Abdomen/Pelvis CT 02/12/19 13:20 IMPRESSION: Moderate inflammatory changes adjacent to the gallbladder with wall thickening suggesting acute cholecystitis. Mild biliary dilatation. No calcified stones identified. Abdomen Ultrasound 02/12/19 14:57 IMPRESSION: Multiple gallstones -moderate sludge with increased gallbladder wall thickness and small amount of pericholecystic fluid. Endo Retro Cholangiopancreatogram 02/14/19 00:00 IMPRESSION: IMAGE(S) OBTAINED DURING PROCEDURE. Assessment and Plan - Diagnosis (1) Acute calculous cholecystitis Is this a current diagnosis for this admission?: Yes Plan: Primary management per surgery. LFTs are elevated, now trending down. Surgery is consulted; plans for lap alexey today Dr. Stacy is consulted; ERCP yesterday She has been empirically placed on IV Zosyn; day #3. Diet per surgery. Continue gentle IV fluids. Antiemetics and analgesics as needed. (2) Abdominal pain Qualifiers: Abdominal location: epigastric Qualified Code(s): R10.13 - Epigastric pain Is this a current diagnosis for this admission?: Yes Plan: Secondary to #1. Evaluation management as above. (3) Coronary artery disease Qualifiers: Coronary Disease-Associated Artery/Lesion type: unspecified vessel or lesion type [place] vs. transplanted heart: [place] heart Associated angina: angina presence unspecified Qualified Code(s): I25.10 - Atherosclerotic heart disease of [place] coronary artery without angina pectoris Is this a current diagnosis for this admission?: Yes Plan: Stable and without acute chest pain at this time. Continue beta-piotr and statin therapy. Holding aspirin until postop. (4) Elevated LFTs Is this a current diagnosis for this admission?: Yes Plan: Trending down; secondary to #1. Evaluation and management as above. Follow-up chemistry. (5) Hypertension Qualifiers: Hypertension type: essential hypertension Qualified Code(s): I10 - Essential (primary) hypertension Is this a current diagnosis for this admission?: Yes Plan: Adequate blood pressure control today. Continue metoprolol 12.5 mg twice daily. IV hydralazine as needed for blood pressure control. Adequate management of acute pain. (6) Tachycardia Is this a current diagnosis for this admission?: Yes Plan: Resolved. Continue to monitor on cardiac telemetry. (7) Bacteremia Is this a current diagnosis for this admission?: Yes Plan: Blood cultures (02/12/2019) positive for E. coli and 4 of 4 bottles. Repeat blood cultures (02/14/2019) Negative at 24 hours Antibiotics have been adjusted to IV Zosyn. When appropriate, recommend transitioning to appropriate oral antibiotics for total of 14 days of therapy due to likely intra-abdominal source of bacteremia. - Time Time Spent with patient: 15-24 minutes Medications reviewed and adjusted accordingly: Yes Anticipated discharge: Home
[2019-02-15] MEDS: ATORVASTATIN CALCIUM 10 MG TABLET PO SCH (21:15)
[2019-02-15] MEDS: OXYCODONE-ACETAMINOPHEN 5-325 MG TABLET PO PRN (23:27)
[2019-02-16] MEDS: KETOROLAC TROMETHAMINE INJ/PF 30 MG/1 ML SDV IV SCH ×3 (02:12→15:25)
[2019-02-16] MEDS: PIPERACILLIN SODIUM/TAZOBACTAM 3.375 GM in NORMAL SALINE 100 ML IV SCH ×3 (02:12→15:25)
[2019-02-16 04:51] LABS: ABSOLUTE LYMPHOCYTES (AUTO) 1.3 10^3/uL (0.5-4.7); ABSOLUTE MONOCYTES (AUTO) 0.8 10^3/uL (0.1-1.4); ABSOLUTE NEUT (AUTO) 11.6 10^3/uL (1.7-8.2); BASOPHILS % (AUTO) 0.1 % (0-2); EOSINOPHILS % (AUTO) 0.1 % (0-6); HEMATOCRIT 28.3 % (36.0-47.0); LYMPHOCYTES % (AUTO) 9.3 % (13-45); MEAN CORPUSCULAR HEMOGLOBIN 30.1 pg (27.0-33.4); MEAN CORPUSCULAR HGB CONC 33.9 g/dL (32.0-36.0); MEAN CORPUSCULAR VOLUME 89 fl (80-97); PLATELET COUNT 225 10^3/uL (150-450); RED CELL DISTRIBUTION WIDTH 12.9 % (11.5-14.0); SEGMENTED NEUTROPHILS % (AUTO) 84.5 % (42-78); TOTAL CELLS COUNTED % (AUTO) 100 %; WHITE BLOOD COUNT 13.7 10^3/uL (4.0-10.5)
[2019-02-16 04:53] LABS: HEMOGLOBIN 9.6 g/dL (12.0-15.5)
[2019-02-16 05:03] LABS: ALBUMIN 2.8 g/dL (3.5-5.0); ALKALINE PHOSPHATASE 165 U/L (38-126); ANION GAP 9 (5-19); ASPARTATE AMINO TRANSFERASE 55 U/L (14-36); BILIRUBIN,DIRECT 0.4 mg/dL (0.0-0.4); BILIRUBIN,TOTAL 0.8 mg/dL (0.2-1.3); BLOOD UREA NITROGEN 10 mg/dL (7-20); CALCIUM 8.4 mg/dL (8.4-10.2); CARBON DIOXIDE 26 mmol/L (22-30); CHLORIDE 103 mmol/L (98-107); GLUCOSE 149 mg/dL (75-110); POTASSIUM 3.6 mmol/L (3.6-5.0); TOTAL PROTEIN 5.4 g/dL (6.3-8.2)
[2019-02-16] MEDS: METOCLOPRAMIDE HCL INJ/PF 10 MG/2 ML SDV IV SCH ×2 (05:56→12:09)
[2019-02-16] MEDS: PANTOPRAZOLE SODIUM 40 MG VIAL IV SCH (09:34)
[2019-02-16] MEDS: METOPROLOL TARTRATE 25 MG TABLET PO SCH (09:34)
[2019-02-16] MEDS: OXYCODONE-ACETAMINOPHEN 5-325 MG TABLET PO PRN (12:13)
[2019-02-16 13:10] VITALS: BP 170/93
--- NOTE | 2019-02-16 16:55 | PDOC PROGRESS REPORT ---
Subjective Progress Note for:: 02/16/19 Subjective:: The patient is a 58-year-old female with a past medical history of [place] and asthma; Not on home medications, who was admitted 02/12/2019 by the surgical service for acute calculous cholecystitis. The patient was seen on morning rounds. She was found rsitting up to the recliner, comfortably, on room air. She reports that she is asymptomatic this morning. Diet has been advanced. She is looking forward to discharge to home this afternoon. She denies fever, chills, chest pain, palpitations, dyspnea, orthopnea, cough, abdominal pain, nausea vomiting and diarrhea. She has no other questions or concerns at this time. No concerns per nursing. Reason For Visit: ACUTE CALCULUS CHOLECYSTITIS,FEVER Physical Exam Vital Signs: Temp Pulse Resp BP Pulse Ox 97.6 F 64 18 170/93 H 98 02/16/19 14:52 02/16/19 14:52 02/16/19 14:52 02/16/19 14:52 02/16/19 14:52 Pulse Oximeter Continuous Start: 02/12/19 17:16 Freq: RTQ4 Status: Complete Protocol: Document 02/14/19 11:15 [facility] (Rec: 02/14/19 11:16 [facility] [id number]) Pulse Oximetry Assessment Oxygen Saturation (92-100) 98 Oxygen Delivery Method Room Air Fraction of Inspired Oxygen (FIO2) 21 Equipment Usage Equipment in Use Continuous SpO2 Machine # 10 Intake & Output 02/15/19 02/16/19 02/17/19 06:59 06:59 06:59 Intake Total 2400 2500 118 Output Total 10 Balance 2400 2490 118 Weight 52.8 kg 54.4 kg General appearance: PRESENT: no acute distress, well-developed, well-nourished Head exam: PRESENT: atraumatic, normocephalic Eye exam: PRESENT: conjunctiva pink, EOMI, PERRLA. ABSENT: scleral icterus Ear exam: PRESENT: normal external ear exam Mouth exam: PRESENT: moist, tongue midline Teeth exam: PRESENT: poor dentation Respiratory exam: PRESENT: clear to auscultation carson. ABSENT: rales, rhonchi, wheezes Cardiovascular exam: PRESENT: RRR. ABSENT: diastolic murmur, rubs, systolic murmur Pulses: PRESENT: normal dorsalis pedis pul Vascular exam: PRESENT: normal capillary refill GI/Abdominal exam: PRESENT: normal bowel sounds, soft. ABSENT: distended, guarding, mass, organolmegaly, rebound, tenderness Rectal exam: PRESENT: deferred Extremities exam: PRESENT: full ROM. ABSENT: calf tenderness, clubbing, pedal edema Neurological exam: PRESENT: alert, awake, oriented to person, oriented to place, oriented to time, oriented to situation, CN II-XII grossly intact. ABSENT: motor sensory deficit Psychiatric exam: PRESENT: normal mood, unusual affect. ABSENT: homicidal ideation, suicidal ideation Skin exam: PRESENT: dry, intact, warm. ABSENT: cyanosis, rash Results Laboratory Results: 02/16/19 04:03 02/16/19 04:03 02/16/19 02/16/19 04:03 04:03 WBC 13.7 H RBC 3.20 L Hgb 9.6 L D Hct 28.3 L MCV 89 MCH 30.1 MCHC 33.9 RDW 12.9 Plt Count 225 Seg Neutrophils % 84.5 H Sodium 137.7 Potassium 3.6 Chloride 103 Carbon Dioxide 26 Anion Gap 9 BUN 10 Creatinine 0.68 Est GFR ( Amer) > 60 Glucose 149 H Calcium 8.4 Total Bilirubin 0.8 AST 55 H Alkaline Phosphatase 165 H Total Protein 5.4 L Albumin 2.8 L Lipase 370.3 H 02/12/19 12:55 Troponin I < 0.012 Impressions: Chest X-Ray 02/12/19 13:19 IMPRESSION: Hyperinflated lungs likely reflecting COPD. Minimal areas of subsegmental atelectasis but no acute infiltrate or other acute abnormality. Abdomen/Pelvis CT 02/12/19 13:20 IMPRESSION: Moderate inflammatory changes adjacent to the gallbladder with wall thickening suggesting acute cholecystitis. Mild biliary dilatation. No calcified stones identified. Abdomen Ultrasound 02/12/19 14:57 IMPRESSION: Multiple gallstones -moderate sludge with increased gallbladder wall thickness and small amount of pericholecystic fluid. Endo Retro Cholangiopancreatogram 02/14/19 00:00 IMPRESSION: IMAGE(S) OBTAINED DURING PROCEDURE. Assessment and Plan - Diagnosis (1) Acute calculous cholecystitis Is this a current diagnosis for this admission?: Yes Plan: Primary management per surgery. LFTs are trending down; nearly normal. Status post arthroscopic cholecystectomy. Dr. Stacy is consulted; ERCP completed The patient received 4 days of IV Zosyn; transition to Augmentin for an additional 10 days at discharge. Diet per surgery. Antiemetics and analgesics as needed. (2) Abdominal pain Qualifiers: Abdominal location: epigastric Qualified Code(s): R10.13 - Epigastric pain Is this a current diagnosis for this admission?: Yes Plan: Secondary to #1. Evaluation management as above. (3) Coronary artery disease Qualifiers: Coronary Disease-Associated Artery/Lesion type: unspecified vessel or lesion type [place] vs. transplanted heart: [place] heart Associated angina: angina presence unspecified Qualified Code(s): I25.10 - Atherosclerotic heart disease of [place] coronary artery without angina pectoris Is this a current diagnosis for this admission?: Yes Plan: Stable and without acute chest pain at this time. Continue beta-piotr and statin therapy. Holding aspirin until postop. (4) Elevated LFTs Is this a current diagnosis for this admission?: Yes Plan: Trending down; secondary to #1. Evaluation and management as above. (5) Hypertension Qualifiers: Hypertension type: essential hypertension Qualified Code(s): I10 - Essential (primary) hypertension Is this a current diagnosis for this admission?: Yes Plan: Adequate blood pressure control today. Continue metoprolol 12.5 mg twice daily. IV hydralazine as needed for blood pressure control. Adequate management of acute pain. (6) Tachycardia Is this a current diagnosis for this admission?: Yes Plan: Resolved. Continue to monitor on cardiac telemetry. (7) Bacteremia Is this a current diagnosis for this admission?: Yes Plan: Blood cultures (02/12/2019) positive for E. coli and 4 of 4 bottles. Repeat blood cultures (02/14/2019) Negative at 24 hours Received 4 days of IV Zosyn. Have transition to p.o. Augmentin for an additional 10 days for total 14-day course. - Plan Summary Summary: Patient is anticipating discharge to home this afternoon. She is medically stable for discharge from the hospitalist perspective on metoprolol and Augmentin. We will sign off at this time. Please reconsult if we can be of further assistance.
--- NOTE | 2019-02-21 03:39 | PDOC DISCHARGE SUMMARY ---
General - Admit/Disc Date/PCP Admission Date/Primary Care Provider: 02/12/19 17:11 Discharge Date: 02/16/19 - Discharge Diagnosis Final Diagnosis: Acute on chronic cholecystitis Common bile duct stones with elevated LFTs Cholelithiasis - Assessment Summary: Patient is anticipating discharge to home this afternoon. She is medically stable for discharge from the hospitalist perspective on metoprolol and Augmentin. We will sign off at this time. Please reconsult if we can be of further assistance. - Additional Information Resuscitation Status: Full Code Discharge Diet: As Tolerated, Regular Discharge Activity: Activity As Tolerated, Balance Activity w/Rest, No Lifting Over 10 Pounds Referrals: [facility] [Provider Group] - 02/27/19 1:00 pm Prescriptions: Amoxicillin/Potassium Clav [Augmentin 500-125 Tablet] 1 each PO Q8H #30 tablet Metoprolol Tartrate [Lopressor 25 mg Tablet] 12.5 mg PO Q12 #30 tab Home Medications: Amoxicillin/Potassium Clav [Augmentin 500-125 Tablet] 1 each PO Q8H #30 tablet 02/16/19 Metoprolol Tartrate [Lopressor 25 mg Tablet] 12.5 mg PO Q12 #30 tab 02/16/19 History of Present Illiness History of Present Illness: SANDRA KRISHNAN is a 58 year old female admitted for right upper quadrant abdominal pains today prior to going to ED. She is noted to have gallstones on ultrasound and dilated common bile duct on a CAT scan. LFTs were elevated day after admission and ERCP was not done by Dr. Alan on 02/14/2019. Underwent laparoscopic cholecystectomy on 02/15/[address] Dang. Postoperatively did very well with LFTs trending down and patient asymptomatic discharge on 02/16/2019 Hospital Course Hospital Course: Admitted 02/12/2019 for acute cholecystitis and cholelithiasis. Next day LFTs elevated and review of the CAT scan showed dilated common bile duct. ERCP done by Dr. Alan on 02/14/2019 and laparoscopic cholecystectomy done by on 02/15/2019. Discharge 02/16/2019 asymptomatic with LFTs trending down medicine consulted will prescribe antibiotic medication for the next 5 days of discharge. Physical Exam Vital Signs: Temp Pulse Resp BP Pulse Ox 97.6 F 64 18 170/93 H 98 02/16/19 14:52 02/16/19 14:52 02/16/19 14:52 02/16/19 14:52 02/16/19 14:52 Pulse Oximeter Continuous Start: 02/12/19 17:16 Freq: RTQ4 Status: Complete Protocol: Document 02/14/19 11:15 [facility] (Rec: 02/14/19 11:16 [facility] [id number]) Pulse Oximetry Assessment Oxygen Saturation (92-100) 98 Oxygen Delivery Method Room Air Fraction of Inspired Oxygen (FIO2) 21 Equipment Usage Equipment in Use Continuous SpO2 Machine # 10 Exam: Right upper quadrant tenderness. No fever. Results Laboratory Results: WBC 13.7 10^3/uL (4.0-10.5) H 02/16/19 04:03 RBC 3.20 10^6/uL (3.72-5.28) L 02/16/19 04:03 Hgb 9.6 g/dL (12.0-15.5) L D 02/16/19 04:03 Hct 28.3 % (36.0-47.0) L 02/16/19 04:03 MCV 89 fl (80-97) 02/16/19 04:03 MCH 30.1 pg (27.0-33.4) 02/16/19 04:03 MCHC 33.9 g/dL (32.0-36.0) 02/16/19 04:03 RDW 12.9 % (11.5-14.0) 02/16/19 04:03 Plt Count 225 10^3/uL (150-450) 02/16/19 04:03 Lymph % (Auto) 9.3 % (13-45) L 02/16/19 04:03 [place] % (Auto) 6.0 % (3-13) 02/16/19 04:03 Eos % (Auto) 0.1 % (0-6) 02/16/19 04:03 Baso % (Auto) 0.1 % (0-2) 02/16/19 04:03 Absolute Neuts (auto) 11.6 10^3/uL (1.7-8.2) H 02/16/19 04:03 Absolute Lymphs (auto) 1.3 10^3/uL (0.5-4.7) 02/16/19 04:03 Absolute Monos (auto) 0.8 10^3/uL (0.1-1.4) 02/16/19 04:03 Absolute Eos (auto) 0.0 10^3/uL (0.0-0.6) 02/16/19 04:03 Absolute Basos (auto) 0.0 10^3/uL (0.0-0.2) 02/16/19 04:03 Total Counted 100 02/13/19 05:17 Seg Neutrophils % 84.5 % (42-78) H 02/16/19 04:03 Seg Neuts % (Manual) 88 % (42-78) H 02/13/19 05:17 Band Neutrophils % 4 % (3-5) 02/13/19 05:17 Lymphocytes % (Manual) 4 % (13-45) L 02/13/19 05:17 Monocytes % (Manual) 4 % (3-13) 02/13/19 05:17 Eosinophils % (Manual) 0 % (0-6) 02/13/19 05:17 Basophils % (Manual) 0 % (0-2) 02/13/19 05:17 Abs Neuts (Manual) 13.2 10^3/uL (1.7-8.2) H 02/13/19 05:17 Abs Lymphs (Manual) 0.6 10^3/uL (0.5-4.7) 02/13/19 05:17 Abs Monocytes (Manual) 0.6 10^3/uL (0.1-1.4) 02/13/19 05:17 Absolute Eos (Manual) 0.0 10^3/uL (0.0-0.6) 02/13/19 05:17 Abs Basophils (Manual) 0.0 10^3/uL (0.0-0.2) 02/13/19 05:17 Nucleated RBCs 1 /100 WBC (0) 02/13/19 05:17 Platelet Comment ADEQUATE 02/13/19 05:17 RBC Morph Comment NORMO-CYTIC/CHROMIC 02/13/19 05:17 Sodium 137.7 mmol/L (137-145) 02/16/19 04:03 Potassium 3.6 mmol/L (3.6-5.0) 02/16/19 04:03 Chloride 103 mmol/L (98-107) 02/16/19 04:03 Carbon Dioxide 26 mmol/L (22-30) 02/16/19 04:03 Anion Gap 9 (5-19) 02/16/19 04:03 BUN 10 mg/dL (7-20) 02/16/19 04:03 Creatinine 0.68 mg/dL (0.52-1.25) 02/16/19 04:03 Est GFR ( Amer) > 60 (>60) 02/16/19 04:03 Est GFR (MDRD) Non-Af > 60 (>60) 02/16/19 04:03 Glucose 149 mg/dL (75-110) H 02/16/19 04:03 POC Glucose 133 mg/dL (70-110) H 02/16/19 06:02 Lactic Acid 1.9 mmol/L (0.7-2.1) 02/12/19 15:50 Calcium 8.4 mg/dL (8.4-10.2) 02/16/19 04:03 Magnesium 1.9 mg/dL (1.6-2.3) 02/12/19 12:55 Total Bilirubin 0.8 mg/dL (0.2-1.3) 02/16/19 04:03 Direct Bilirubin 0.4 mg/dL (0.0-0.4) 02/16/19 04:03 Neonat Total Bilirubin Not Reportable 02/16/19 04:03 Neonat Direct Bilirubin Not Reportable 02/16/19 04:03 Neonat Indirect Bili Not Reportable 02/16/19 04:03 AST 55 U/L (14-36) H 02/16/19 04:03 ALT 224 U/L (<35) 02/16/19 04:03 Alkaline Phosphatase 165 U/L (38-126) H 02/16/19 04:03 Troponin I < 0.012 ng/mL 02/12/19 12:55 Total Protein 5.4 g/dL (6.3-8.2) L 02/16/19 04:03 Albumin 2.8 g/dL (3.5-5.0) L 02/16/19 04:03 Lipase 370.3 U/L (23-300) H 02/16/19 04:03 Urine Color DARÍO 02/13/19 02:15 Urine Appearance CLEAR 02/13/19 02:15 Urine pH 7.0 (5.0-9.0) 02/13/19 02:15 Ur Specific [place] 1.025 02/13/19 02:15 Urine Protein 30 mg/dL (NEGATIVE) H 02/13/19 02:15 Urine Glucose (UA) NEGATIVE mg/dL (NEGATIVE) 02/13/19 02:15 Urine Ketones NEGATIVE mg/dL (NEGATIVE) 02/13/19 02:15 Urine Blood MODERATE (NEGATIVE) H 02/13/19 02:15 Urine Nitrite NEGATIVE (NEGATIVE) 02/13/19 02:15 Urine Bilirubin NEGATIVE (NEGATIVE) 02/13/19 02:15 Urine Urobilinogen 4.0 mg/dL (<2.0) H 02/13/19 02:15 Ur Leukocyte Esterase NEGATIVE (NEGATIVE) 02/13/19 02:15 Urine WBC (Auto) 9 /HPF 02/13/19 02:15 Urine RBC (Auto) 46 /HPF 02/13/19 02:15 Squamous Epi Cells Auto 1 /HPF 02/13/19 02:15 Urine Mucus (Auto) RARE /LPF 02/13/19 02:15 Urine Ascorbic Acid NEGATIVE (NEGATIVE) 02/13/19 02:15 Urine Opiates Screen NEGATIVE 02/12/19 15:50 Urine Methadone Screen NEGATIVE 02/12/19 15:50 Ur Barbiturates Screen NEGATIVE 02/12/19 15:50 Ur Phencyclidine Scrn NEGATIVE 02/12/19 15:50 Ur Amphetamines Screen NEGATIVE 02/12/19 15:50 U Benzodiazepines Scrn NEGATIVE 02/12/19 15:50 Urine Cocaine Screen NEGATIVE 02/12/19 15:50 U Marijuana (THC) Screen NEGATIVE 02/12/19 15:50 02/12/19 12:55 Troponin I < 0.012 Impressions: Chest X-Ray 02/12/19 13:19 IMPRESSION: Hyperinflated lungs likely reflecting COPD. Minimal areas of subsegmental atelectasis but no acute infiltrate or other acute abnormality. Abdomen/Pelvis CT 02/12/19 13:20 IMPRESSION: Moderate inflammatory changes adjacent to the gallbladder with wall thickening suggesting acute cholecystitis. Mild biliary dilatation. No calcified stones identified. Abdomen Ultrasound 02/12/19 14:57 IMPRESSION: Multiple gallstones -moderate sludge with increased gallbladder wall thickness and small amount of pericholecystic fluid. Endo Retro Cholangiopancreatogram 02/14/19 00:00 IMPRESSION: IMAGE(S) OBTAINED DURING PROCEDURE. Plan Health Concerns: Patient's hypertensive and medication. Patient to be followed in the surgical clinic in 2weeks. Patient to continue p.o. antibiotics, 5days for acute cholecystitis noted during surgery Plan of Treatment: Underwent ERCP on 02/14/[address] Alan and laparoscopic cholecystectomy on 02/15/[address] Dang Goals: Patient to continue with p.o. antibiotics for the next 5 days and to be followed up in the surgical clinic in 2 weeks Time Spent: Less than 30 Minutes
== END 2019-02-16 15:00 | disposition home or self-care (01) | DRG 418 ==
LOC: ER 12:48 → EH 17:11 → 5 18:42
PROVIDERS: ADMIT Surgery; ATTEND Surgery
PROC: 0F778ZZ Dilation of Common Hepatic Duct, Via Natural or Artificial Opening Endoscopic (ICD-10-PCS; 2019-02-14)
PROC: 0F798ZZ Dilation of Common Bile Duct, Via Natural or Artificial Opening Endoscopic (ICD-10-PCS; 2019-02-14 18:30)
PROC: 0FT44ZZ Resection of Gallbladder, Percutaneous Endoscopic Approach (ICD-10-PCS; principal; 2019-02-15 10:45)
DX: K80.66 Calculus of gallbladder and bile duct with acute and chronic cholecystitis without obstruction (principal); R78.81 Bacteremia; I10 Essential (primary) hypertension; I25.10 Atherosclerotic heart disease of native coronary artery without angina pectoris; B96.20 Unspecified Escherichia coli [E. coli] as the cause of diseases classified elsewhere; F17.210 Nicotine dependence, cigarettes, uncomplicated; I25.2 Old myocardial infarction; Z60.2 Problems related to living alone
CPT/HCPCS: 36415; 43262; 43277; 71045; 732; 74177; 74330; 76705; 790; 80053; 80307; 81001; 82962; 83605; 83690; 83735; 84484; 85025; 85027; 87040; 87070; 87077; 87086; 87150; 87186; 87205; 88304; 93005; 93010; 94762; 94799; 96361; 96365; 99285; C9113; J0330; J1100; J1170; J1610; J1885; J1956; J2250; J2270; J2405; J2543; J2704; J2710; J2765; J3010; J3490; J7030; J7042; J7050; J7120

== ENCOUNTER 2019-05-14 19:00 | Emergency (ER) | payer SELFPAY ==
--- NOTE | 2019-05-14 19:35 | ER Document Report ---
ED Medical Screen (RME) - General Chief Complaint: Chest Pain Stated Complaint: CHEST PAIN Time Seen by Provider: 05/14/19 19:07 Notes: 58-year-old female patient with past medical history hypertension comes emergency room complaining of nausea vomiting diarrhea all day. She came in by EMS with hyperventilating and diarrhea. Brief exam showed a rather pale appearing female much older than her stated age. She has her head flopped back and intermittently hyperventilating, occasionally stops breathing completely for several seconds. When I speak with her she is completely alert and oriented and conversant. She does appear to be hyperventilating. She does have a very strong odor from diarrhea that is concerning for C. difficile. Lab work was ordered including an ABG. EMS reported that there CO2 monitor was reading 15 and they were not sure if it was accurate. A 12-lead from EMS is unremarkable. I have greeted and performed a rapid initial assessment of this patient. A comprehensive ED assessment and evaluation of the patient, analysis of test results and completion of the medical decision making process will be conducted by additional ED providers. TRAVEL OUTSIDE OF THE [place] IN LAST 30 DAYS: No - Related Data Allergies/Adverse Reactions: No Known Allergies Allergy (Verified 02/12/19 20:12) Past Medical History - Past Medical History Cardiac Medical History: Reports: Hx Heart Attack - 2002 Pulmonary Medical History: Reports: Hx Asthma Psychiatric Medical History: Denies: Hx Depression Past Surgical History: Reports: Hx Cholecystectomy, Hx Nose Surgery, Hx Orthopedic Surgery - facial reconstruction, Hx Tubal Ligation Physical Exam - Vital signs Vitals: Pulse Ox 99 05/14/19 19:13 Course - Vital Signs Vital signs: Temp Pulse Resp BP Pulse Ox 99 05/14/19 19:13 - Laboratory Result Diagrams: 05/14/19 19:10 05/14/19 19:10 Laboratory results interpreted by me: 05/14/19 19:10 WBC 13.0 H Hgb 11.8 L Hct 34.2 L
[2019-05-14 19:41] LABS: ABSOLUTE BASOPHILS # (AUTO) 0.1 10^3/uL (0.0-0.2); ABSOLUTE EOSINOPHILS # (AUTO) 0.2 10^3/uL (0.0-0.6); ABSOLUTE LYMPHOCYTES (AUTO) 4.6 10^3/uL (0.5-4.7); ABSOLUTE MONOCYTES (AUTO) 0.9 10^3/uL (0.1-1.4); ABSOLUTE NEUT (AUTO) 7.2 10^3/uL (1.7-8.2); BASOPHILS % (AUTO) 0.5 % (0-2); EOSINOPHILS % (AUTO) 1.8 % (0-6); HEMATOCRIT 34.2 % (36.0-47.0); HEMOGLOBIN 11.8 g/dL (12.0-15.5); LYMPHOCYTES % (AUTO) 35.6 % (13-45); MEAN CORPUSCULAR HEMOGLOBIN 30.2 pg (27.0-33.4); MEAN CORPUSCULAR HGB CONC 34.6 g/dL (32.0-36.0); MEAN CORPUSCULAR VOLUME 87 fl (80-97); MONOCYTES % (AUTO) 6.7 % (3-13); PLATELET COUNT 302 10^3/uL (150-450); RED BLOOD COUNT 3.92 10^6/uL (3.72-5.28); SEGMENTED NEUTROPHILS % (AUTO) 55.4 % (42-78); TOTAL CELLS COUNTED % (AUTO) 100 %
--- NOTE | 2019-05-14 19:54 | RADIOLOGY REPORT (SQ) ---
EXAM DESCRIPTION: CHEST SINGLE VIEW IMAGES COMPLETED DATE/TIME: 05/14/2019 7:27 pm REASON FOR STUDY: chest pain COMPARISON: Chest 02/12/2019 EXAM PARAMETERS: NUMBER OF VIEWS: One view. TECHNIQUE: Single frontal radiographic view of the chest acquired. RADIATION DOSE: NA LIMITATIONS: None. FINDINGS: LUNGS AND PLEURA: Minimal bandlike atelectasis left mid lung. Lungs are otherwise well inflated and clear. No pleural effusion. No pneumothorax. MEDIASTINUM AND HILAR STRUCTURES: No masses. Contour normal. HEART AND VASCULAR STRUCTURES: Heart normal in size. Normal vasculature. BONES: No acute findings. HARDWARE: None in the chest. OTHER: No other significant finding. IMPRESSION: Minimal bandlike atelectasis left mid lung. TECHNICAL DOCUMENTATION: JOB ID: [id number]- All Rights Reserved Reading location - IP/workstation name: [email or web address]
[2019-05-14 19:55] LABS: ALBUMIN 4.2 g/dL (3.5-5.0); ALKALINE PHOSPHATASE 91 U/L (38-126); ANION GAP 15 (5-19); ASPARTATE AMINO TRANSFERASE 28 U/L (14-36); BILIRUBIN,DIRECT 0.2 mg/dL (0.0-0.4); BILIRUBIN,TOTAL 0.5 mg/dL (0.2-1.3); BLOOD UREA NITROGEN 12 mg/dL (7-20); CALCIUM 9.5 mg/dL (8.4-10.2); CARBON DIOXIDE 17 mmol/L (22-30); CHLORIDE 105 mmol/L (98-107); CREATINE KINASE 44 U/L (30-135); GLUCOSE 134 mg/dL (75-110)
[2019-05-14 19:57] LABS: ARTERIAL BLOOD H2CO3 0.42 mmol/L (1.05-1.35); ARTERIAL BLOOD HCO3 18.7 mmol/L (20-24); ARTERIAL BLOOD O2 SATURATION 99.3 % (94-98); ARTERIAL BLOOD PO2 126.7 mmHg (80-100); ARTERIAL BLOOD TOTAL CO2 19.1 mmol/L (21-25)
[2019-05-14 19:58] LABS: ARTERIAL BLOOD FIO2 ROOM AIR
[2019-05-14 20:01] LABS: ARTERIAL BLOOD PCO2 14.1 mmHg (35-45); ARTERIAL BLOOD PH 7.74 (7.35-7.45)
[2019-05-14 20:01] LABS: POTASSIUM 2.8 mmol/L (3.6-5.0)
[2019-05-14 20:19] LABS: CREATINE KINASE MB 0.35 ng/mL (<4.55)
[2019-05-14 20:20] LABS: TROPONIN I < 0.012 ng/mL
[2019-05-14] MEDS ORDERED: ONDANSETRON HCL INJ/PF 4 MG/2 ML SDV IV ONE (20:27)
[2019-05-14] MEDS ORDERED: NORMAL SALINE 1000 ML 1,000 ML IV ONE (20:27)
[2019-05-14] MEDS ORDERED: PROMETHAZINE HCL INJ 25 MG/1 ML VIAL IV ONE (20:32)
--- NOTE | 2019-05-14 20:47 | ER Document Report ---
Entered by YAS CHAVEZ SCRIBE 05/14/192024 Acting as scribe for:JUANA FAGAN IV, MD ED General - General Chief Complaint: Chest Pain Stated Complaint: CHEST PAIN Time Seen by Provider: 05/14/19 19:07 Mode of Arrival: Medic Information source: Patient, Emergency Med Personnel Notes: This 58 year old female patient with a history of hypertension brought in by EMS presents to the ED today with complaints of chest pain, hyperventilation, and nausea/vomiting/diarrhea that occurred prior to arrival. Patient states that she was "hurting" and now feels "shaky and sick to my stomach." Patient also reports dizziness and generalized numbness/tingling. EMS reports that they administered 25 mg Benadryl, 324 mg Aspirin, and x3 sprays of NTG en route with patient reporting mild improvement in chest pain. According to EMS, the patient had several episodes of bowel incontinence en route. ED nurse reports that the present to the ED hyperventilating. TRAVEL OUTSIDE OF THE [place] IN LAST 30 DAYS: No - Related Data Allergies/Adverse Reactions: No Known Allergies Allergy (Verified 02/12/19 20:12) Past Medical History - General Information source: Patient, Emergency Med Personnel, [facility] Records - Social History Smoking Status: Current Every Day Smoker Cigarette use (# per day): Yes Chew tobacco use (# tins/day): No Smoking Education Provided: No Family History: Reviewed & Not Pertinent Patient has suicidal ideation: No Patient has homicidal ideation: No - Past Medical History Cardiac Medical History: Reports: Hx Coronary Artery Disease, Hx Heart Attack - 2002, Hx Hypertension Pulmonary Medical History: Reports: Hx Asthma Past Surgical History: Reports: Hx Cholecystectomy, Hx Nose Surgery, Hx Orthopedic Surgery - facial reconstruction, Hx Tubal Ligation Review of Systems - Review of Systems Constitutional: No symptoms reported EENT: No symptoms reported Cardiovascular: See HPI, Chest pain, Dizziness Respiratory: See HPI, Other - Hyperventilation Gastrointestinal: See HPI, Diarrhea, Nausea, Vomiting, Fecal incontinence Genitourinary: No symptoms reported Female Genitourinary: No symptoms reported Musculoskeletal: No symptoms reported Skin: No symptoms reported Hematologic/Lymphatic: No symptoms reported Neurological/Psychological: See HPI, Numbness - tingling -: Yes All other systems reviewed and negative Physical Exam - Vital signs Vitals: Resp 21 H 05/14/19 19:03 Interpretation: Normal - General General appearance: Alert - HEENT Head: Normocephalic, Atraumatic Eyes: Normal Pupils: PERRL - Respiratory Respiratory status: No respiratory distress Chest status: Nontender Breath sounds: Normal Chest palpation: Normal - Cardiovascular Rhythm: Regular, Tachycardia Heart sounds: Normal auscultation Murmur: No Friction rub: No Gallop: None auscultated - Abdominal Inspection: Normal Distension: No distension Bowel sounds: Normal Tenderness: Nontender - Abdomen soft Organomegaly: No organomegaly - Back Back: Normal, Nontender - Extremities General upper extremity: Normal inspection General lower extremity: Normal inspection - Neurological Neuro grossly intact: Yes - Psychological Associated symptoms: Normal affect, Normal mood - Skin Skin Temperature: Warm Skin Moisture: Dry Skin Color: Pale Course - Re-evaluation Re-evalutation: 05/15/19 02:07 Results of ED MSE discussed with patient. All questions were answered prior to discharge. Emergency signs and symptoms, reasons to return to the emergency department discussed with patient. - Vital Signs Vital signs: Temp Pulse Resp BP Pulse Ox 97.4 F 11 L 115/62 100 05/14/19 20:12 05/14/19 20:00 05/14/19 19:15 05/14/19 20:00 - Laboratory Result Diagrams: 05/14/19 19:10 05/14/19 19:10 Laboratory results interpreted by me: 05/14/19 05/14/19 05/14/19 19:10 19:10 19:15 WBC 13.0 H Hgb 11.8 L Hct 34.2 L Carbonic Acid 0.42 L ABG pH 7.74 H* ABG pCO2 14.1 L* ABG pO2 126.7 H ABG HCO3 18.7 L ABG Total CO2 19.1 L ABG O2 Saturation 99.3 H Potassium 2.8 L* Carbon Dioxide 17 L Glucose 134 H - Diagnostic Test Radiology reviewed: Reports reviewed Discharge - Discharge Clinical Impression: Hypokalemia Nausea and vomiting Qualifiers: Vomiting type: unspecified Vomiting Intractability: non-intractable Qualified Code(s): R11.2 - Nausea with vomiting, unspecified Diarrhea Qualifiers: Diarrhea type: unspecified type Qualified Code(s): R19.7 - Diarrhea, unspecified Condition: Good Disposition: HOME, SELF-CARE Instructions: Antinausea Medication ([facility]), Vomiting ([facility]), Diarrhea, Nonspecific ([facility]) Additional Instructions: Return to the Emergency Department without delay if any worse. HOME CARE INSTRUCTIONS & INFORMATION: Thank you for choosing us for your medical needs. We hope you're satisfied with the care you received. After you leave, you must properly care for your problem and, at the same time, observe its progress. Any condition can change. Some illnesses can change rapidly over hours or days. If your condition worsens, return to the Emergency Department or see your physician promptly. ABOUT YOUR X-RAYS AND EKG'S: If you had an EKG or X-rays taken, they have been read by the Emergency Physician. The X-rays and EKG's will also be read by a R adiologist or Stitcher Hand within 24 hours. If discrepancies are noted, you will be notified by telephone. Please be certain the ED has a correct telephone number & address where you can be reached. Also, realize that some fractures or abnormalities do not show up on initial X-rays. If your symptoms continue, see your physician. ABOUT YOUR LABORATORY TEST: If you had laboratory tests, the results have been reviewed by the Emergency Physician. Some test results (for example cultures) may not be available for several days. You will be contacted if any test result shows you need additional treatment. Please be certain the ED has a correct telephone number and address where you can be reached. ABOUT YOUR MEDICATIONS: You will receive instructions on how to take your medicine on the prescription label you receive. Additional information may be provided by the Pharmacy. If you have questions afterwards, call the ED for clarification or further instructions. Some prescribed medications may cause drowsiness. Do not perform tasks such as driving a car or operating machinery without consulting your Pharmacist. If you feel you need a refill of pain medication, your condition will need re-evaluation. Please do not call for a refill of any medication. ABOUT YOUR SIGNATURE: Signature of this document acknowledges to followin. Understanding that you received emergency treatment and that you may be released before al medical problems are known or treated. Please be certain the ED has a correct phone number & address where you can be reached. 2. Acknowledgement that you will arrange for follow-up care as recommended. 3. Authorization for the Emergency Physician to provide information to your follow-up Physician in order to maximize your care. AT ANY TIME, IF YOUR SYMPTOMS CHANGE SIGNIFICANTLY OR WORSEN OR YOU DEVELOP NEW SYMPTOMS, RETURN TO THE EMERGENCY DEPARTMENT IMMEDIATELY FOR RE-EVALUATION. OUR GOAL IS TO PROVIDE EXCELLENT MEDICAL CARE! WE HOPE THAT WE HAVE MET YOUR EXPECTATIONS DURING YOUR EMERGENCY DEPARTMENT VISIT AND THAT YOU FEEL YOU HAVE RECEIVED EXCELLENT CARE! Referrals: KELLY JAVIER MD [HONORARY] - Follow up as needed I personally performed the services described in the documentation, reviewed and edited the documentation which was dictated to the scribe in my presence, and it accurately records my words and actions.
--- NOTE | 2019-05-14 22:05 | EKG REPORT ---
SEVERITY:- ABNORMAL ECG - SINUS TACHYCARDIA BORDERLINE PROLONGED QT INTERVAL LA ENLARGEMENT NONSPECIFIC ST-T CHANGES DIFFUSE PROLONGED QT INTERVAL : Confirmed by: Jeff Sen MD 14-May-2019 22:04:56
[2019-05-14] MEDS ORDERED: POTASSIUM CHLORIDE 10 MEQ TABLET.ER PO ONE (23:15)
--- NOTE | 2019-05-15 00:19 | RADIOLOGY REPORT (SQ) ---
CLINICAL INDICATION: diarrhea. . TECHNIQUE: Contrast enhanced spiral axial CT imaging was obtained of the abdomen and pelvis with multiplanar reconstructions. This exam was performed according to our departmental dose-optimization program, which includes automated exposure control, adjustment of the mA and/or kV according to patient size and/or use of iterative reconstruction techniques. COMPARISON: February 12, 2019. CORRELATION: None. FINDINGS: Abdomen: The lung bases demonstrate chronic changes. The heart is prominent. Trace pericardial fluid. Fluid in the distal esophagus. The liver is of normal size contour and attenuation. Mild pneumobilia. The gallbladder is surgically absent, interval change from prior. There does appear to be a tiny fluid collection in the gallbladder fossa measuring approximately, measuring 2.2 x 2.7 cm. The pancreas is unremarkable. The spleen is unremarkable. The adrenals are unremarkable. The kidneys appear grossly normal without evidence of urolithiasis or hydronephrosis. There is no evidence of free air. No free fluid. No bulky adenopathy. Abdominal aorta is nonaneurysmal. Pelvis: The bowel is nonobstructed. The bowel is unopacified with oral contrast. Pelvic contents are unremarkable. The appendix is not seen. Diverticulosis of the colon. No acute diverticulitis.. Visualized bones are unremarkable. IMPRESSION: Interval postsurgical change from cholecystectomy. There is a small fluid collection without of air/gas within the gallbladder fossa. Please correlate with timing of surgery.. This may represent a postoperative seroma. No inflammatory changes to suggest abscess
[2019-05-15] MEDS ORDERED: ONDANSETRON ODT 4 MG TAB (6 TAB/ER DISP) PO PRN (01:35)
[2019-05-15] MEDS ORDERED: NORMAL SALINE 1000 ML 1,000 ML IV ONE (01:42)
[2019-05-15] MEDS ORDERED: MECLIZINE HCL 25 MG TABLET PO ONE (01:42)
[2019-05-15 02:55] VITALS: BP 138/74
[2019-05-15 02:58] LABS: APPEARANCE,URINE CLEAR; BILIRUBIN,URINE NEGATIVE (NEGATIVE); COLOR,URINE COLORLESS; GLUCOSE, URINE NEGATIVE (NEGATIVE); KETONES,URINE NEGATIVE (NEGATIVE); PROTEIN,URINE NEGATIVE (NEGATIVE); URINE SPECIFIC GRAVITY 1.017; UROBILINOGEN,URINE NEGATIVE mg/dL (<2.0)
[2019-05-15 03:31] LABS: C DIFFICILE GDH NEGATIVE (NEGATIVE)
== END 2019-05-15 03:03 | disposition home or self-care (01) ==
LOC: ER 19:00
DX: E87.6 Hypokalemia (principal); R07.9 Chest pain, unspecified; I10 Essential (primary) hypertension; R11.2 Nausea with vomiting, unspecified; R19.7 Diarrhea, unspecified; R06.4 Hyperventilation; R42 Dizziness and giddiness; R20.0 Anesthesia of skin; R20.2 Paresthesia of skin; F17.210 Nicotine dependence, cigarettes, uncomplicated; R15.9 Full incontinence of feces; I25.10 Atherosclerotic heart disease of native coronary artery without angina pectoris; I25.2 Old myocardial infarction; J45.909 Unspecified asthma, uncomplicated
CPT/HCPCS: 93005; 99285; 96361; 96374; 36415; 87045; 89055; 87205; 82553; 82803; 82550; 85025; 80053; 81001; 84484; 87324; 87449; 71045; 74177; 93010; J2550; J7030

== ENCOUNTER → 2019-05-19 | Outpatient (CLI) | payer OTHER ==
[2019-05-19 13:42] LABS: ALBUMIN 4.5 g/dL (3.5-5.0); ALKALINE PHOSPHATASE 66 U/L (38-126); ANION GAP 8 (5-19); ASPARTATE AMINO TRANSFERASE 25 U/L (14-36); BILIRUBIN,DIRECT 0.2 mg/dL (0.0-0.4); BILIRUBIN,TOTAL 0.6 mg/dL (0.2-1.3); BLOOD UREA NITROGEN 11 mg/dL (7-20); CALCIUM 9.6 mg/dL (8.4-10.2); CARBON DIOXIDE 28 mmol/L (22-30); CHLORIDE 103 mmol/L (98-107); GLUCOSE 81 mg/dL (75-110); POTASSIUM 4.3 mmol/L (3.6-5.0); TOTAL PROTEIN 7.7 g/dL (6.3-8.2)
== END ==
LOC: CCC 12:16
DX: E87.6 Hypokalemia (principal)
CPT/HCPCS: 36415; 80053

== ENCOUNTER 2019-11-25 17:00 | Emergency (ER) | payer SELFPAY ==
[2019-11-25] MEDS ORDERED: DIPHENHYDRAMINE HCL 50 MG/ML VIAL IV ONE (17:32)
--- NOTE | 2019-11-25 17:33 | ER Document Report ---
Entered by LINUS ELDER SCRIBE 11/25/19 1233 Acting as scribe for:ROBERT GRULLON MD ED General - General Stated Complaint: ABDOMINAL PAIN Time Seen by Provider: 11/25/19 17:18 Primary Care Provider: KELLY JAVIER MD [Primary Care Provider] - Follow up as needed Mode of Arrival: Ambulatory Information source: Patient Notes: This 59 year old female patient presents to the emergency department today with complaints of chest pain, abdominal pain, shortness of breath, nausea, vomiting, and diarrhea. Patient reports that all of these symptoms seemed to begin about an hour prior to calling 911. Patient was given 3 nitroglycerin, aspirin, and 4 mg Zofran prior to arrival. TRAVEL OUTSIDE OF THE [place] IN LAST 30 DAYS: No - Related Data Allergies/Adverse Reactions: No Known Allergies Allergy (Verified 02/12/19 20:12) Past Medical History - General Information source: Patient - Social History Smoking Status: Current Every Day Smoker Cigarette use (# per day): Yes Frequency of alcohol use: None Drug Abuse: None Lives with: Family Family History: Reviewed & Not Pertinent - Past Medical History Cardiac Medical History: Reports: Hx Coronary Artery Disease, Hx Heart Attack - 2002, Hx Hypertension Pulmonary Medical History: Reports: Hx Asthma Past Surgical History: Reports: Hx Cholecystectomy, Hx Nose Surgery, Hx Orthopedic Surgery - facial reconstruction, Hx Tubal Ligation Review of Systems - Review of Systems Constitutional: No symptoms reported EENT: No symptoms reported Cardiovascular: See HPI, Chest pain Respiratory: See HPI, Short of breath Gastrointestinal: See HPI, Abdominal pain, Diarrhea, Nausea, Vomiting Genitourinary: No symptoms reported Female Genitourinary: No symptoms reported Musculoskeletal: No symptoms reported Skin: No symptoms reported Hematologic/Lymphatic: No symptoms reported Neurological/Psychological: No symptoms reported -: Yes All other systems reviewed and negative Physical Exam - Vital signs Vitals: Temp 97.3 F 11/25/19 17:00 - Notes Notes: Physical Exam: General: Alert, appears significantly older than stated age, intermittently hyperventilates which stops when distracted. HEENT: Normocephalic. Atraumatic. PERRL. Extraocular movements intact. Chelsie pharynx clear. Neck: Supple. Non-tender. Respiratory: No respiratory distress. Clear and equal breath sounds bilaterally. Hyperventilating. Cardiovascular: Regular rate and rhythm. Abdominal: Normal Inspection. Non-tender. No distension. Normal Bowel Sounds. Back: No gross abnormalities. Extremities: Moves all four extremities. Upper extremities: Normal inspection. Normal ROM. Lower extremities: Normal inspection. No edema. Normal ROM. Neurological: Normal cognition. AAOx4. Normal speech. Psychological: Normal affect. Normal Mood. Skin: Warm. Dry. Normal color. Course - Vital Signs Vital signs: Temp Pulse Resp BP Pulse Ox 97.6 F 6 L 126/68 H 98 11/25/19 18:25 11/25/19 18:25 11/25/19 18:25 11/25/19 18:25 - Laboratory Result Diagrams: 11/25/19 17:56 11/25/19 17:56 Laboratory results interpreted by me: 11/25/19 11/25/19 17:56 17:56 WBC 11.5 H Hgb 11.8 L Hct 33.8 L Lymph % (Auto) 9.7 L Absolute Neuts (auto) 10.0 H Seg Neutrophils % 86.4 H Carbon Dioxide 21 L Glucose 217 H - Diagnostic Test Radiology reviewed: Image reviewed - Chest x-ray does not show acute cardiopulmonary process. - EKG Interpretation by Fl EKG shows normal: Sinus rhythm, [place], QRS Complexes, ST-T Waves. abnormal: Intervals - Borderline prolonged QT interval Rate: Normal - 99 Rhythm: NSR When compared to previous EKG there are: No significant change Discharge - Discharge Clinical Impression: Anxiety hyperventilation Chest pain Qualifiers: Chest pain type: unspecified Qualified Code(s): R07.9 - Chest pain, unspecified Condition: Stable Disposition: HOME, SELF-CARE Additional Instructions: Anxiety The physician feels that some of your health problems are being caused by anxiety. Anxiety affects your health in many ways. Anxiety alone can cause palpitations, sweats, chest pains, abdominal pains, shortness of breath, and headaches. It contributes to ulcer disease, high blood pressure, irritable bowel syndrome, and has been shown to cause flare-ups of many other diseases. Anxiety is not a simple disorder to treat. If the anxiety is due to recent life stresses, you may simply need time to "work through" the changes. If the anxiety is due to an underlying unhappiness with yourself or due to psychiatric disturbance, professional help will be needed. Your physician can refer you for further help if needed. Anti-anxiety medication is occasionally given if the stress is acute or if you are having trouble sleeping. Chronic or frequent use of these medications is not a good idea because the body becomes reliant on it, preventing you from dealing with life's normal stresses. Chest Pain of Unclear Cause The exact cause of your chest pain isn't clear. Fortunately, there is no evidence of a dangerous medical condition. Further testing may be required to find the source of the pain. Most often, we find that this pain is coming from the chest wall -- the muscles or rib joints in the chest. But chest pain can come from the lung and lung lining, the esophagus, the heart valves or heart lining, and even the stomach or gallbladder. Rest. Eat lightly until the pain is gone. We may prescribe medicine for pain and inflammation. You should call the physician immediately if the pain radiates to the shoulder, jaw or arms; if you start to run a fever or develop a cough; or if you develop shortness of breath, or other new or alarming symptoms. Your EKG was normal this evening. Your lab work did not show evidence of cardiac muscle injury. Your description of the events this evening sounds like this was a panic attack. You should follow-up with your primary care provider this week for recheck if you continue to have symptoms. RETURN TO THE EMERGENCY ROOM IF ANY NEW OR WORSENING SYMPTOMS. Referrals: KELLY JAVIER MD [Primary Care Provider] - Follow up as needed I personally performed the services described in the documentation, reviewed and edited the documentation which was dictated to the scribe in my presence, and it accurately records my words and actions.
--- NOTE | 2019-11-25 18:03 | RADIOLOGY REPORT (SQ) ---
EXAM DESCRIPTION: CHEST SINGLE VIEW IMAGES COMPLETED DATE/TIME: 11/25/2019 5:36 pm REASON FOR STUDY: Chest pain COMPARISON: 05/14/2019 EXAM PARAMETERS: NUMBER OF VIEWS: One view. TECHNIQUE: Single frontal radiographic view of the chest acquired. RADIATION DOSE: NA LIMITATIONS: None. FINDINGS: LUNGS AND PLEURA: No opacities, masses or pneumothorax. No pleural effusion. MEDIASTINUM AND HILAR STRUCTURES: No masses. Contour normal. HEART AND VASCULAR STRUCTURES: Heart normal in size. Normal vasculature. BONES: No acute findings. HARDWARE: None in the chest. OTHER: No other significant finding. IMPRESSION: NO ACUTE RADIOGRAPHIC FINDING IN THE CHEST. TECHNICAL DOCUMENTATION: JOB ID: [id number] 2010 [employer]- All Rights Reserved Reading location - IP/workstation name: [email or web address]
[2019-11-25 18:21] LABS: ABSOLUTE LYMPHOCYTES (AUTO) 1.1 10^3/uL (0.5-4.7); ABSOLUTE MONOCYTES (AUTO) 0.4 10^3/uL (0.1-1.4); BASOPHILS % (AUTO) 0.4 % (0-2); EOSINOPHILS % (AUTO) 0.3 % (0-6); HEMATOCRIT 33.8 % (36.0-47.0); HEMOGLOBIN 11.8 g/dL (12.0-15.5); LYMPHOCYTES % (AUTO) 9.7 % (13-45); MEAN CORPUSCULAR HEMOGLOBIN 30.9 pg (27.0-33.4); MEAN CORPUSCULAR HGB CONC 34.8 g/dL (32.0-36.0); MEAN CORPUSCULAR VOLUME 89 fl (80-97); MONOCYTES % (AUTO) 3.2 % (3-13); PLATELET COUNT 297 10^3/uL (150-450); RED CELL DISTRIBUTION WIDTH 12.4 % (11.5-14.0); SEGMENTED NEUTROPHILS % (AUTO) 86.4 % (42-78); TOTAL CELLS COUNTED % (AUTO) 100 %; WHITE BLOOD COUNT 11.5 10^3/uL (4.0-10.5)
[2019-11-25 18:36] LABS: ALBUMIN 4.3 g/dL (3.5-5.0); ALKALINE PHOSPHATASE 72 U/L (38-126); ANION GAP 14 (5-19); ASPARTATE AMINO TRANSFERASE 20 U/L (14-36); BILIRUBIN,DIRECT 0.2 mg/dL (0.0-0.4); BILIRUBIN,TOTAL 0.5 mg/dL (0.2-1.3); BLOOD UREA NITROGEN 11 mg/dL (7-20); CALCIUM 9.8 mg/dL (8.4-10.2); CARBON DIOXIDE 21 mmol/L (22-30); CHLORIDE 102 mmol/L (98-107); CREATINE KINASE 37 U/L (30-135); GLUCOSE 217 mg/dL (75-110); POTASSIUM 3.9 mmol/L (3.6-5.0); TOTAL PROTEIN 7.2 g/dL (6.3-8.2)
[2019-11-25 20:11] VITALS: BP 125/83
--- NOTE | 2019-11-25 21:53 | EKG REPORT ---
SEVERITY:- BORDERLINE ECG - SINUS RHYTHM BORDERLINE PROLONGED QT INTERVAL : Confirmed by: Jennifer Joy MD 25-Nov-2019 21:53:24
== END 2019-11-25 20:28 | disposition home or self-care (01) ==
LOC: ER 17:00
DX: F41.9 Anxiety disorder, unspecified (principal); R06.4 Hyperventilation; R10.9 Unspecified abdominal pain; R07.9 Chest pain, unspecified; R11.2 Nausea with vomiting, unspecified; R19.7 Diarrhea, unspecified; J45.909 Unspecified asthma, uncomplicated; F17.210 Nicotine dependence, cigarettes, uncomplicated; I25.10 Atherosclerotic heart disease of native coronary artery without angina pectoris; I10 Essential (primary) hypertension; I25.2 Old myocardial infarction
CPT/HCPCS: 93005; 99285; 96374; 36415; 82550; 83690; 85025; 80053; 84484; 71045; 93010; J1200

== ENCOUNTER → 2019-12-11 | Outpatient (CLI) | payer OTHER ==
[2019-12-11 09:38] LABS: ABSOLUTE EOSINOPHILS # (AUTO) 0.2 10^3/uL (0.0-0.6); ABSOLUTE LYMPHOCYTES (AUTO) 1.6 10^3/uL (0.5-4.7); ABSOLUTE MONOCYTES (AUTO) 0.4 10^3/uL (0.1-1.4); ABSOLUTE NEUT (AUTO) 5.2 10^3/uL (1.7-8.2); BASOPHILS % (AUTO) 0.5 % (0-2); EOSINOPHILS % (AUTO) 2.2 % (0-6); HEMATOCRIT 36.9 % (36.0-47.0); HEMOGLOBIN 12.9 g/dL (12.0-15.5); LYMPHOCYTES % (AUTO) 21.3 % (13-45); MEAN CORPUSCULAR HEMOGLOBIN 31.3 pg (27.0-33.4); MEAN CORPUSCULAR HGB CONC 34.9 g/dL (32.0-36.0); MEAN CORPUSCULAR VOLUME 90 fl (80-97); MONOCYTES % (AUTO) 5.6 % (3-13); PLATELET COUNT 265 10^3/uL (150-450); RED BLOOD COUNT 4.11 10^6/uL (3.72-5.28); RED CELL DISTRIBUTION WIDTH 12.7 % (11.5-14.0); SEGMENTED NEUTROPHILS % (AUTO) 70.4 % (42-78); TOTAL CELLS COUNTED % (AUTO) 100 %; WHITE BLOOD COUNT 7.4 10^3/uL (4.0-10.5)
[2019-12-11 09:43] LABS: APPEARANCE,URINE CLOUDY; BILIRUBIN,URINE NEGATIVE (NEGATIVE); COLOR,URINE YELLOW; GLUCOSE, URINE NEGATIVE (NEGATIVE); KETONES,URINE NEGATIVE (NEGATIVE); LEUKOCYTE ESTERASE,URINE LARGE (NEGATIVE); NITRITE,URINE NEGATIVE (NEGATIVE); PROTEIN,URINE 30 mg/dL (NEGATIVE); URINE SPECIFIC GRAVITY 1.017; UROBILINOGEN,URINE NEGATIVE mg/dL (<2.0)
[2019-12-11 10:06] LABS: CHOLESTEROL 183.64 mg/dL (0-200); TRIGLYCERIDES 138 mg/dL (<150)
--- NOTE | 2019-12-11 10:11 | RADIOLOGY REPORT (SQ) ---
EXAM DESCRIPTION: LUMBAR SPINE W/FLEX/EXT IMAGES COMPLETED DATE/TIME: 12/11/2019 9:59 am REASON FOR STUDY: LBP Z51.81 ENCOUNTER FOR THERAPEUTIC DRUG LEVEL MONITORING R31.0 GROSS HEMATURIA R10.9 UNSPECIFIED ABDOMINAL PAIN COMPARISON: None. NUMBER OF VIEWS: Seven views. TECHNIQUE: AP, lateral, obliques, flexion, extension, and sacral radiographic images acquired. LIMITATIONS: None. FINDINGS: MINERALIZATION: Normal. SEGMENTATION: Normal. No transitional anatomy. ALIGNMENT: Normal. FLEXION/EXTENSION: No instability. VERTEBRAE: Maintained height. No fracture or worrisome bone lesion. DISCS: Preserved height. No significant osteophytes or end plate irregularity. POSTERIOR ELEMENTS: Pedicles and facets are intact. No pars defect or posterior arch defects. HARDWARE: None in the spine. PARASPINAL SOFT TISSUES: Normal. PELVIS: Intact as visualized. No fractures or worrisome bone lesions. SI joints intact. OTHER: No other significant finding. IMPRESSION: NO SIGNIFICANT FINDING ON 7 VIEW SPINE SERIES. NO INSTABILITY ON FLEXION/EXTENSION. TECHNICAL DOCUMENTATION: JOB ID: [id number] 2010 [employer]- All Rights Reserved Reading location - IP/workstation name: [email or web address]
--- NOTE | 2019-12-11 10:12 | RADIOLOGY REPORT (SQ) ---
EXAM DESCRIPTION: ANKLE LEFT COMPLETE IMAGES COMPLETED DATE/TIME: 12/11/2019 9:59 am REASON FOR STUDY: PAIN IN LEFT ANKLE AND JOINTS OF LEFT FOOT Z51.81 ENCOUNTER FOR THERAPEUTIC DRUG LEVEL MONITORING R31.0 GROSS HEMATURIA R10.9 UNSPECIFIED ABDOMINAL PAIN COMPARISON: None. NUMBER OF VIEWS: Three views. TECHNIQUE: AP, lateral, and oblique without weight bearing radiographic images acquired of the left ankle. LIMITATIONS: None. FINDINGS: MINERALIZATION: Normal. BONES: No acute fracture or dislocation. No worrisome bone lesions. No significant osteophytes. JOINTS: No effusions. SOFT TISSUES: No soft tissue swelling. No foreign body. OTHER: No other significant finding. IMPRESSION: NO SIGNIFICANT FINDING IN THE LEFT ANKLE. NO EXPLANATION FOR PAIN. TECHNICAL DOCUMENTATION: JOB ID: [id number] 2010 [employer]- All Rights Reserved Reading location - IP/workstation name: [email or web address]
[2019-12-11 10:22] LABS: DIRECT LDL 101 mg/dL (<100)
--- NOTE | 2019-12-11 12:53 | EKG REPORT ---
SEVERITY:- BORDERLINE ECG - SINUS RHYTHM PROBABLE LEFT ATRIAL ABNORMALITY BORDERLINE T ABNORMALITIES, ANT-LAT LEADS : Confirmed by: Jeff Sen MD 11-Dec-2019 12:53:08
== END ==
LOC: CCC 08:30
PROVIDERS: ATTEND Internal Medicine
DX: R07.9 Chest pain, unspecified (principal); M25.572 Pain in left ankle and joints of left foot; R10.9 Unspecified abdominal pain; I25.42 Coronary artery dissection; R31.0 Gross hematuria; Z51.81 Encounter for therapeutic drug level monitoring; Z79.899 Other long term (current) drug therapy
CPT/HCPCS: 36415; 72114; 80061; 81001; 83036; 83735; 84443; 85025; 93005; 93010

== ENCOUNTER 2020-01-23 12:17 | Emergency (ER) | payer OTHER ==
[2020-01-23 12:24] VITALS: BP 124/75
--- NOTE | 2020-01-23 12:47 | ER Document Report ---
HPI - HPI Time Seen by Provider: 01/23/20 12:33 Notes: 59-year-old female with a history of anxiety and depression presents to the emergency room for left knee evaluation after she fell on her left knee while she was trying to get to the bathroom 2 months ago, has never had it checked out and states that she has intermittent pain. Reports she does have a history of osteoarthritis. Has never been evaluated by a provider, she states she went to the [facility] and she is supposed to get x-rays but nothing happened. Reports pain is 3 out of 5, achy at times. Able to bear full weight. Has not tried any [id number] medications. Denies any numbness or tingling down bilateral lower extremities. She says sometimes her left knee does get a little swollen she has been standing on her feet all day. Denies any chest pain, shortness of breath, nausea, vomiting, diarrhea, bowel or bladder dysfunction, saddle anesthesia, vaginal bleeding, vaginal discharge, dysuria. Denies any HI or SI. - REPRODUCTIVE Reproductive: DENIES: : Past Medical History - General Information source: Patient - Social History Smoking Status: Unknown if Ever Smoked Family History: Reviewed & Not Pertinent - Past Medical History Cardiac Medical History: Reports: Hx Coronary Artery Disease, Hx Heart Attack - 2002, Hx Hypertension Pulmonary Medical History: Reports: Hx Asthma Psychiatric Medical History: Denies: Hx Depression Past Surgical History: Reports: Hx Cholecystectomy, Hx Nose Surgery, Hx Orthopedic Surgery - facial reconstruction, Hx Tubal Ligation Vertical Provider Document - CONSTITUTIONAL Agree With Documented VS: Yes Exam Limitations: No Limitations General Appearance: WD/WN Notes: MEDICATIONS: I agree with the patient medications as charted by the RN. ALLERGIES: I agree with the allergies as charted by the RN. PAST MEDICAL HISTORY/PAST SURGICAL HISTORY: Reviewed and agree as charted by RN. SOCIAL HISTORY: Reviewed and agree as charted by RN. FAMILY HISTORY: No significant familial comorbid conditions directly related to patient complaint EXAM: Reviewed vital signs as charted by RN. PHYSICAL EXAMINATION: reviewed vital signs by RN GENERAL: Well-appearing, well-nourished and in no acute distress. HEAD: Atraumatic, normocephalic. EYES: Pupils equal round and reactive to light, extraocular movements intact, conjunctiva are normal. ENT: Nares patent, oropharynx clear without exudates. Moist mucous membranes. NECK: Normal range of motion, supple without lymphadenopathy LUNGS: Breath sounds clear to auscultation bilaterally and equal. No wheezes rales or rhonchi. HEART: Regular rate and rhythm without murmurs ABDOMEN: Soft, nontender, nondistended abdomen. No guarding, no rebound. No masses appreciated. Female : deferred Musculoskeletal: Normal range of motion, no pitting or edema. No cyanosis. left knee pain with palpation to lateral aspect of knee with scant swelling. negative renzo's sign. anterior and posterior drawer test negative. noted pain with inversion. Dtr + 2 in BLE. Full motor and sensory function to BLE equally. No open wounds. No induration or drainage. Strength 5 out of 5 bilaterally equally. Ankle examination normal. Squeeze test negative. Hip examination normal. Pulses + 2 bilaterally and equally.negative squeeze bilaterally and equally. NEUROLOGICAL: Cranial nerves grossly intact. Normal speech, normal gait. Normal sensory, motor exams PSYCH: Normal mood, normal affect. SKIN: Warm, Dry, normal turgor, no rashes or lesions noted. - INFECTION CONTROL TRAVEL OUTSIDE OF THE [place] IN LAST 30 DAYS: No Course - Re-evaluation Re-evalutation: 01/23/20 12:42 Afebrile, slightly tachycardic, patient states she is anxious, otherwise vitals intact. Nurses notes reviewed. X-ray of left knee shows a effusion, no fracture dislocation or foreign body, states consider MRI which patient can obtain outpatient from lawn specialist. Will place patient in knee immobilizer and crutches. Advised to follow-up with lawn specialist within the next 24 to 48 hours. Alternate between Tylenol and ibuprofen for pain control. Apply heat 20 minutes on 20 minutes off several times a day. After performing a Medical Screening Examination, I estimate there is LOW risk for OPEN FRACTURE, COMPARTMENT SYNDROME, DEEP VENOUS THROMBOSIS, ACUTE TENDON RUPTURE, or NEUROVASCULAR INJURY thus I consider the discharge disposition reasonable. I have reevaluated this patient multiple times and no significant life threatening changes are noted. The patient and I have discussed the diagnosis and risks, and we agree with discharging home to closely follow-up with their primary doctor or the referral orthopedist with the understanding that symptoms and presentations can change. We also discussed returning to the Emergency Department immediately if new or worsening symptoms occur. We have discussed the symptoms which are most concerning (e.g., changing or worsening pain, numbness, weakness) that necessitate immediate return 01/23/20 12:43 - Vital Signs Vital signs: Temp Pulse Resp BP Pulse Ox 98.3 F 109 H 16 124/75 96 01/23/20 12:24 01/23/20 12:24 01/23/20 12:24 01/23/20 12:24 01/23/20 12:24 - Laboratory Results Critical Laboratory Results Reviewed: No Critical Results - Radiology Results Critical Radiology Results Reviewed: No Critical Results Discharge - Discharge Clinical Impression: Left knee pain Condition: Stable Disposition: ELOPED Instructions: Knee Effusion ([facility]), Knee Exercise Program ([facility]), Knee Immobilizing Splint ([facility]), Sprained Knee ([facility]) Additional Instructions: Your x-rays today were negative for any acute fracture, dislocations, foreign bodies. Noted effusion on x-ray. Advised to follow-up outpatient with lawn specialist as they recommend having an outpatient MRI. Alternate between Tylenol and ibuprofen for pain control. Use crutches as directed as well as knee immobilizer. Apply heat 20 minutes on 20 minutes off several times a day. Return immediately for any new or worsening symptoms. Follow up with primary care provider, call tomorrow to make followup appointment. Prescriptions: Naproxen 500 mg PO BID #10 tablet Referrals: BING MONTGOMERY MD [Primary Care Provider] - Follow up as needed REYNA THOMPSON DO [ACTIVE STAFF] - Follow up in 3-5 days
--- NOTE | 2020-01-23 13:16 | RADIOLOGY REPORT (SQ) ---
EXAM DESCRIPTION: KNEE LEFT 4 VIEW IMAGES COMPLETED DATE/TIME: 01/23/2020 1:05 pm REASON FOR STUDY: fell in November, +L knee pain. worse with time. COMPARISON: None. NUMBER OF VIEWS: Four views. TECHNIQUE: AP, lateral, and both oblique radiographic images acquired of the left knee. LIMITATIONS: None. FINDINGS: MINERALIZATION: Normal. BONES: No acute fracture or dislocation. No worrisome bone lesions. JOINT: There is a prominent joint effusion. SOFT TISSUES: No soft tissue swelling. No radio-opaque foreign body. OTHER: No other significant finding. IMPRESSION: Effusion. No acute osseous finding. Consider MRI for further evaluation. TECHNICAL DOCUMENTATION: JOB ID: [id number] [employer]- All Rights Reserved Reading location - IP/workstation name: [email or web address]
== END 2020-01-23 14:42 | disposition left against medical advice (07) ==
LOC: ER 12:17
DX: M25.562 Pain in left knee (principal); M79.89 Other specified soft tissue disorders; F41.9 Anxiety disorder, unspecified; F32.9 Major depressive disorder, single episode, unspecified; W19.XXXA Unspecified fall, initial encounter; Y92.009 Unspecified place in unspecified non-institutional (private) residence as the place of occurrence of the external cause; I25.10 Atherosclerotic heart disease of native coronary artery without angina pectoris; I25.2 Old myocardial infarction; I10 Essential (primary) hypertension; J45.909 Unspecified asthma, uncomplicated
CPT/HCPCS: 99283